=== PATIENT | male | born 1965 | race Caucasian/White ===

== ENCOUNTER 2017-04-08 09:59 | Inpatient (IN) | payer OTHER ==
[2017-04-08] MEDS ORDERED: ALBUTEROL SULFATE/IPRATROPIUM 3 ML NEBU IH ONE ×3 (10:01→12:14)
[2017-04-08] MEDS ORDERED: METHYLPREDNISOLONE SOD SUCC/PF 40 MG/ML VIAL IV ONE (10:05)
[2017-04-08] MEDS ORDERED: METHYLPREDNISOLONE SOD SUCC/PF 125 MG/2 ML VIAL ONE (10:05)
[2017-04-08] MEDS ORDERED: LORazepam 2 MG/ML DISP.SYRIN ONE ×2 (10:24→11:45)
[2017-04-08 10:25] LABS: Hematocrit 51.3 % (42.0-52.0); Hemoglobin 17.3 gm/dL (13.5-18.0); Mean Cell Volume 101.6 fl (78-100); Mean Corpuscular Hemoglobin 34.3 pg (27-31); Mean Corpuscular Hgb Conc 33.7 g/dl (32-36); Mean Platelet Volume 8.6 fl (6.0-9.5); Neutrophil # 5.9 K/mm3 (1.3-6.0); Neutrophil % 64.6 % (42-75.0); Platelet Count 334 K/mm3 (150-450); Red Blood Count 5.05 M/mm3 (4.7-6.0); Red Cell Distribution Width 12.5 % (11.5-14.0); White Blood Count 9.2 K/mm3 (4.0-10.5)
--- NOTE | 2017-04-08 10:27 | ERNOTE ---
Dyspnea - General Time Seen by Provider: 04/08/17 10:15 Source: patient Exam Limitations: no limitations - Immun/Allergies/Home Medications Immunizations: IMMUNIZATION HX Immunizations Up to Date Yes History of Influenza Vaccine More Information Required Hx Pneumococcal Vaccination More Information Required Allergies/Adverse Reactions: Allergies No Known Allergies Allergy (Verified 04/08/17 13:26) Home Medications: HOME MEDICATIONS Mometasone Furoate [Asmanex] 220 mcg IH DAILY 12/12/14 [Last Taken Unknown] Albuterol Sulfate [Ventolin Hfa] 2 puff IH Q2H PRN #1 inhaler 01/04/15 [Last Taken Unknown] Tiotropium Br/Olodaterol HCl [Stiolto Respimat Inhal [place]] 2 puff IH DAILY [Last Taken Unknown] predniSONE [Prednisone] 15 mg PO DAILY 04/08/17 [Last Taken Unknown] - History of Present Illness Narrative: This is a 52-year-old male with a history of asthma COPD and emphysema who has been having shortness of breath worse than usual for the past 2 days. The shortness of breath got significantly worse this morning. Ambulance was dispatched to the patient's residence the patient is brought in via EMS. Upon arrival patient is diaphoretic tachypneic and tachycardic and he has bibasal and bilateral upper inspiratory and expiratory wheezes upon auscultation of the lungs. An attempt at bronchodilation with Solu-Medro 125 mg IV, DuoNeb, BiPAP, lightly improved patient's condition however patient was starting to get tired and fatigued and grunting. - Patient's Past Medical History Patient History - Medical: No pertinent hx, Other Patient History - Cardiac/Respiratory: Asthma, COPD Patient History - Cancer: No Hx of Cancer Patient History - Surgical Procedures: No surgical history Patient History - Other: None - Family History Mother Family History - Medical: No pertinent hx Father Family History - Medical: No pertinent hx - Social History Living Situations: home Abuse History: No History of abuse Psych History: No pertinent hx Smoking Status: Former smoker Alcohol Use: heavy Drug Use: none - Immunizations Immunizations Up to Date: Yes Hx Pneumococcal Vaccination: More Information Required to Determine History of Influenza Vaccine: More Information Required to Determine ED Progress - Vital Signs Vital Signs: Vital Signs 04/08/17 10:02 Temperature 36.3 C L Pulse Rate 151 H Respiratory 28 H Rate O2 Sat by Pulse 95 Oximetry - Progress/Reassessment Chief Complaint: Dyspnea Departure Clinical Impression: Respiratory failure Qualifiers: Chronicity: unspecified Respiratory failure complication: hypoxia Qualified Code(s): J96.91 - Respiratory failure, unspecified with hypoxia - Departure Disposition: [facility] Condition: Serious - Critical Care Total Time (mins): 60
[2017-04-08] MEDS ORDERED: NORMAL SALINE 1,000 ML IV ONE (10:30)
[2017-04-08] MEDS ORDERED: LORazepam 2 MG/ML DISP.SYRIN IV ONE ×3 (10:30→11:45)
[2017-04-08 10:40] LABS: Albumin * 3.9 gm/dl (3.4-5.0); Anion Gap 14.4 mmol/L (6.8-13.8); BUN/Creatinine Ratio 14.9 (9.0-21.6); Bilirubin, Total 0.7 mg/dL (0.0-1.1); Ca. Corrected For Albumin 8.6 mg/dL (8.4-10.2); Calcium * 8.8 mg/dL (7.9-10.9); Carbon Dioxide 28.1 mmol/L (24-32.6); Potassium 4.5 mmol/L (3.4-4.6); Total Protein 7.8 gm/dL (6.2-8.2)
[2017-04-08] MEDS: PROPOFOL 1,000 MG/100 ML PIGGYBACK IV PRN ×10 (10:48→21:37)
--- NOTE | 2017-04-08 10:57 | OR ---
Anesthesia Procedure Note - Anesthesia Procedure Note Date of Service: 04/08/17 Narrative: Vital Signs - Last Taken Temp 36.3 C L 04/08/17 10:02 Pulse 151 H 04/08/17 10:02 Resp 28 H 04/08/17 10:02 BP 100/64 03/09/16 15:20 Pulse Ox 95 04/08/17 10:02 O2 Oxygen Delivery Method Room Air 04/08/17 10:47 Procedure: Endotracheal intubation Preprocedural diagnosis: Respiratory failure, respiratory acidosis Assessment: I was called to the emergency department for an endotracheal intubation on a patient with respiratory distress, retaining CO2. Mr. Dickey is a 52-year-old male patient who is currently sitting in the upright position on the stretcher in obvious respiratory distress he is on BiPAP which has been of some help however there is not a great seal due to his mustache.. Saturations are maintaining in the 90s however he has rapid respiratory rate and increasing heart rate indicates a progressive respiratory failure. The procedure and risks were explained and discussed with the patient and family there are 2 eyepiece present 20-gauge in the right forearm and a 20-gauge in the left hand. The 20-gauge in the right forearm had saline running in it and that was the IV initial induction was used. Brief description of procedure: Mr. Dickey was given 2 mg of Ativan IV after approximately 2 minutes was given 50 mg of ketamine followed by 14 mg of etomidate. At this point the emergency room physician request to stop conduction because the IV was apparently infiltrated. As such the team was instructed to quickly change the IV fluids to the other side where I gave an additional 50 mg of ketamine followed by the remaining 6 mg of etomidate considering the etomidate dose I followed with 60 mg of propofol, then 10 mg of vecuronium. Plan Mr. Dickey decreased his respiration he was placed in a supine position and was ventilated with 100% per Ambu bag. Next, using a #3 glide scope blade the larynx was visualized in the #8.0 endotracheal tube was passed stylette removed, the cuff inflated, and improved per 100% was attached. The patient was ventilated with bilateral breath sounds equal and CO2 positive by side stream analysis. The endotracheal tube was fixed at 23 cm to the gums with a commercial endotracheal Vogel. A postprocedural chest x-ray was ordered EBL: 0 Specimens: 0 Patient tolerated the procedure well and is now being ventilated
[2017-04-08 11:18] LABS: Urine Bilirubin Negative (NEGATIVE); Urine Blood 50 /ul (NEGATIVE); Urine Ketone Negative (NEGATIVE); Urine Nitrite Negative (NEGATIVE); Urine Protein 100 mg/dL (NEGATIVE); Urine Specific Gravity >=1.030 SP.GR. (1.005-1.030); Urine Urobilinogen Normal (NORMAL); Urine pH 5.5 pH (5.0-7.0)
[2017-04-08 11:20] LABS: Urine Appearance Slightly Cloudy; Urine Bacteria 1+; Urine Color Yellow; Urine WBC None Seen /hpf (0-5)
[2017-04-08] MEDS ORDERED: METHYLPREDNISOLONE SOD SUCC/PF 40 MG/ML VIAL IV SCH (11:30)
[2017-04-08] MEDS ORDERED: ROCURONIUM BROMIDE 10 MG/ML VIAL IV ONE (12:06)
[2017-04-08] MEDS: ALBUTEROL SULFATE/IPRATROPIUM 3 ML NEBU IH SCH ×4 (12:19→23:01)
[2017-04-08] MEDS ORDERED: MIDAZOLAM HCL/PF 1 MG/ML VIAL IV PRN (13:09)
[2017-04-08] MEDS: NORMAL SALINE IV SCH ×2 (13:43→21:58)
[2017-04-08] MEDS: MIDAZOLAM HCL IV SCH ×2 (13:43→21:58)
[2017-04-08] MEDS: INSULIN LISPRO 100 UNITS/ML VIAL SC SCH ×4 (13:53→23:30)
[2017-04-08] MEDS: METHYLPREDNISOLONE SOD SUCC 125 MG in WATER FOR INJ.,BACTERIOSTATIC 0 ML IV SCH ×3 (14:21→23:18)
[2017-04-08] MEDS: LEVOFLOXACIN/D5W 750 MG/150 ML BAG IV SCH (14:21)
[2017-04-08] MEDS: FAMOTIDINE 20 MG in DEXTROSE 5 % IN WATER 100 ML IV SCH ×4 (14:27→23:17)
[2017-04-08] MEDS ORDERED: MULTIVIT INFUSN,ADULT 4,VIT K 10 ML, THIAMINE HCL 100 MG in NORMAL SALINE 1,000 ML IV ONE (14:59)
[2017-04-08] MEDS ORDERED: LORazepam 2 MG/ML DISP.SYRIN IV PRN ×3 (14:59)
[2017-04-08] MEDS ORDERED: THIAMINE HCL 100 MG/ML VIAL IM STA (14:59)
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
--- NOTE | 2017-04-08 15:38 | OR ---
Anesthesia Procedure Note - Anesthesia Procedure Note Date of Service: 04/08/17 Narrative: Vital Signs - Last Taken Temp 36.8 C 04/08/17 13:14 Pulse 121 H 04/08/17 14:41 Resp 32 H 04/08/17 14:41 BP 118/82 04/08/17 14:41 Pulse Ox 98 04/08/17 14:41 O2 Oxygen Delivery Method Vent 04/08/17 15:35 ANESTHESIA PROCEDURE NOTE Date of Procedure: 04/08/2017. Time of procedure: 1440. Performed by: Austyn Johnson CRNA Color Expert: None. Preprocedure diagnosis: Respiratory arrest. Post procedure diagnosis: Same. Procedure: Ultrasound guided PICC line insertion. Indications: This is a 52-year-old male who is in need of a PICC line for multiple IV infusions. Findings: See below. Details of the procedure: Under ultrasound guidance the right basilic vein was visualized. Skin over the intended target site was cleansed with ChloraPrep. The patient was draped in sterile fashion. The skin over the intended target site was anesthetized with 1% lidocaine. Under direct ultrasound visualization the vein was cannulated with a 22-gauge IV catheter. Dark red blood was noted from the catheter. A 0.45 mm guidewire was inserted through the IV catheter and IV catheter was removed intact. A skin joan was made at the guidewire insertion site with a scalpel. The 5 [place] vessel dilator was inserted over the guidewire and the guidewire was removed intact. Dark red blood was noted from the vessel dilator. The PICC line was inserted to a depth of 41 cm and the vessel dilator was peeled away. Dark red blood was noted from both ports of the PICC line. PICC line was flushed with sterile normal saline solution. A sterile dressing was then applied over the PICC line insertion site. Chest x- ray revealed the PICC line to have crossed over the mediastinum into a left arm vessel. The PICC line was withdrawn approximately 8 cm under sterile technique and reinserted. New sterile dressing was then applied over the PICC line insertion site. EBL: Minimal. Fluids: N/A. Specimen: N/A. Post procedure condition: The patient tolerated the procedure well. No complications were noted. Chest x-ray revealed the placement of the PICC line to be in the superior vena cava. Thank you for this consultation. Austyn Johnson, PATIENT CARE COORDINATOR
[2017-04-08] MEDS: ENOXAPARIN SODIUM 40 MG/0.4 ML SYRG SC SCH (15:52)
[2017-04-09] MEDS: PROPOFOL 1,000 MG/100 ML PIGGYBACK IV PRN ×6 (00:19→13:37)
[2017-04-09] MEDS: ALBUTEROL SULFATE/IPRATROPIUM 3 ML NEBU IH SCH ×3 (03:04→13:19)
[2017-04-09] MEDS: INSULIN LISPRO 100 UNITS/ML VIAL SC SCH ×3 (03:18→11:33)
[2017-04-09] MEDS: METHYLPREDNISOLONE SOD SUCC 125 MG in WATER FOR INJ.,BACTERIOSTATIC 0 ML IV SCH ×2 (05:28→11:16)
[2017-04-09 05:59] LABS: Hematocrit 44.3 % (42.0-52.0); Hemoglobin 14.8 gm/dL (13.5-18.0); Mean Cell Volume 101.6 fl (78-100); Mean Corpuscular Hemoglobin 33.9 pg (27-31); Mean Corpuscular Hgb Conc 33.4 g/dl (32-36); Mean Platelet Volume 8.8 fl (6.0-9.5); Neutrophil # 10.4 K/mm3 (1.3-6.0); Neutrophil % 91.2 % (42-75.0); Platelet Count 251 K/mm3 (150-450); Red Blood Count 4.36 M/mm3 (4.7-6.0); Red Cell Distribution Width 12.2 % (11.5-14.0); White Blood Count 11.5 K/mm3 (4.0-10.5)
[2017-04-09 06:31] LABS: Albumin * 3.3 gm/dl (3.4-5.0); Anion Gap 13.4 mmol/L (6.8-13.8); Bilirubin Direct 0.1 mg/dL (0.0-0.3); Bilirubin, Total 0.5 mg/dL (0.0-1.1); Bilirubin,Indirect 0.4 mg/dL (0.1-0.7); Calcium * 8.2 mg/dL (7.9-10.9); Estimated Creat Clear 96.1; Potassium 4.4 mmol/L (3.4-4.6); Total Protein 6.6 gm/dL (6.2-8.2)
[2017-04-09 06:34] LABS: Hemoglobin A1C 5.4 % (4.00-6.0)
[2017-04-09] MEDS: MIDAZOLAM HCL IV SCH ×2 (07:04→13:37)
[2017-04-09] MEDS: NORMAL SALINE IV SCH ×2 (07:04→13:37)
[2017-04-09] MEDS ORDERED: CHLORHEXIDINE GLUCONATE 15 ML UDC MM SCH (09:00)
[2017-04-09] MEDS ORDERED: FOLIC ACID 1 MG TABLET PO SCH (09:00)
[2017-04-09] MEDS ORDERED: THIAMINE HCL 100 MG TABLET PO SCH (09:00)
[2017-04-09] MEDS ORDERED: MULTIVITAMINS 1 CAP CAPSULE PO SCH (09:00)
[2017-04-09] MEDS: ENOXAPARIN SODIUM 40 MG/0.4 ML SYRG SC SCH (10:47)
[2017-04-09] MEDS: FAMOTIDINE 20 MG in DEXTROSE 5 % IN WATER 100 ML IV SCH ×2 (10:50)
[2017-04-09] MEDS: LEVOFLOXACIN/D5W 750 MG/150 ML BAG IV SCH (11:19)
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
[2017-04-09 13:35] VITALS: BP 111/75
== END 2017-04-09 13:54 | disposition short-term general hospital (02) | DRG 208 ==
LOC: ER 09:59 → SCU 10:47
PROVIDERS: ADMIT Internal Medicine; ATTEND Internal Medicine
PROC: 0BH17EZ Insertion of Endotracheal Airway into Trachea, Via Natural or Artificial Opening (ICD-10-PCS; principal; 2017-04-08)
PROC: 5A1945Z Respiratory Ventilation, 24-96 Consecutive Hours (ICD-10-PCS; principal; 2017-04-08)
PROC: 4A033R1 Measurement of Arterial Saturation, Peripheral, Percutaneous Approach (ICD-10-PCS; 2017-04-08)
DX: J96.02 Acute respiratory failure with hypercapnia (principal); J44.1 Chronic obstructive pulmonary disease with (acute) exacerbation; J45.909 Unspecified asthma, uncomplicated; R73.9 Hyperglycemia, unspecified; F10.10 Alcohol abuse, uncomplicated; D75.89 Other specified diseases of blood and blood-forming organs; F17.210 Nicotine dependence, cigarettes, uncomplicated

== ENCOUNTER 2019-06-29 14:08 | Inpatient (IN) ==
[2019-06-29] MEDS ORDERED: ALBUTEROL SULFATE 2.5 MG/0.5 ML VIAL.NEB IH ONE ×2 (14:38→16:14)
[2019-06-29] MEDS ORDERED: METHYLPREDNISOLONE SOD SUCC/PF 125 MG/2 ML VIAL IV ONE (14:38)
[2019-06-29 15:10] LABS: Hematocrit 43.8 % (42.0-52.0); Hemoglobin 15.1 gm/dL (13.5-18.0); Mean Corpuscular Hemoglobin 33.8 pg (27-31); Mean Corpuscular Hgb Conc 34.5 g/dl (32-36); Mean Platelet Volume 8.6 fl (8-11.3); Neutrophil % 86.3 % (42-75.0); Platelet Count 238 K/mm3 (150-450); Red Blood Count 4.47 M/mm3 (4.7-6.0); Red Cell Distribution Width 12.2 % (11.5-14.0); White Blood Count 8.1 K/mm3 (4.0-10.5)
[2019-06-29 15:21] LABS: ALT 91 U/L (19-67); AST 45 U/L (0-48); Albumin * 3.7 gm/dl (3.4-5.0); Alkaline Phosphatase * 66 U/L (50-170); Anion Gap 9.1 mmol/L (6.8-13.8); BUN/Creatinine Ratio 13.9 (9.0-21.6); Bilirubin, Total 0.6 mg/dL (0.0-1.1); Blood Urea Nitrogen 15 mg/dL (6-23); Ca. Corrected For Albumin 8.4 mg/dL (8.4-10.2); Calcium * 8.5 mg/dL (7.9-10.9); Chloride 100 mmol/L (97-106); Glucose * 143 mg/dL (70-110); Magnesium 1.9 mg/dL (1.2-2.8); Potassium 4.1 mmol/L (3.4-4.6); Sodium 132 mmol/L (132-142); Total Protein 7.2 gm/dL (6.2-8.2); Troponin I Less than 0.017 ng/mL (0.00-0.10)
[2019-06-29] MEDS ORDERED: LEVOFLOXACIN IN DEXTROSE 5 % 500 MG/100 ML BAG IV SCH (16:00)
--- NOTE | 2019-06-29 16:25 | ERNOTE ---
Dyspnea - Date Date of Service: 06/29/19 - General Presenting Symptoms: shortness of breath, wheezing Time Seen by Provider: 06/29/19 14:25 Source: patient Exam Limitations: no limitations - Immun/Allergies/Home Medications Immunizations: IMMUNIZATION HX Immunizations Up to Date Yes History of Influenza Vaccine Yes Hx Pneumococcal Vaccination No Allergies/Adverse Reactions: Allergies No Known Allergies Allergy (Verified 06/29/19 14:17) Home Medications: HOME MEDICATIONS Mometasone Furoate [Asmanex] 220 mcg IH DAILY 12/12/14 [Last Taken Unknown] Albuterol Sulfate [Ventolin Hfa] 2 puff IH Q2H PRN #1 inhaler 01/04/15 [Last Taken Unknown] Tiotropium Br/Olodaterol HCl [Stiolto Respimat Inhal [place]] 2 puff IH DAILY 04/08/17 [Last Taken Unknown] predniSONE [Prednisone] 18 mg PO DAILY 04/08/17 [Last Taken Unknown] Aspirin [Aspirin EC] 81 mg PO DAILY 09/19/18 [Last Taken Unknown] Atorvastatin Calcium 40 mg PO DAILY 09/19/18 [Last Taken Unknown] Hydroxyzine HCl 50 mg PO HS 09/19/18 [Last Taken Unknown] Lisinopril [Zestril] 5 mg PO DAILY 09/19/18 [Last Taken Unknown] Montelukast Sodium [Singulair] 10 mg PO DAILY 09/19/18 [Last Taken Unknown] Omeprazole 20 mg PO DAILY 09/19/18 [Last Taken Unknown] Albuterol Sulfate [Albuterol Sulfate 2.5 MG/0.5ML] 1 vial INHALATION Q4H PRN 06/29/19 [Last Taken Unknown] - History of Present Illness Narrative: Patient presents to the ED for SOB. This has been going on since yesterday. he was told he should come in early because of his bad lungs and he still thinks he waited too long this time. SOB/wheezing and sputum production. No fever. He took innumerable breathing treatments at home. EMS called and gave him solumedrol and 2 breathing treatments. Still feels SOB. 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 Denies: fever/chills, chest pain/discomfort, weakness Prior Treatment: Denies: currently on antibiotics Review of Systems - Review of Systems Constitutional: Absent: fever ENT: Absent: sore throat Respiratory: Present: shortness of breath, cough Cardiology: Absent: chest pain Gastrointestinal/Abdominal: Absent: abdominal pain Genitourinary: Absent: dysuria All Other Systems: All systems neg except as marked Medical History (Last Reviewed 06/29/19 @ 16:22 by Alonzo Marina MD) Asthma COPD (chronic obstructive pulmonary disease) Surgical History: Surgical History (Last Reviewed 06/29/19 @ 16:22 by Alonzo Marina MD) No pertinent past surgical history Social History: (Last Reviewed 06/29/19 @ 16:22 by Alonzo Marina MD) Tobacco: Smoking Status: Current every day smoker Smoking cigarettes per day: 3 Alcohol: alcohol intake: current alcohol intake frequency: 0-2 drinks per day Substance Use: substance use type: does not use Physical Exam - Physical Exam General Appearance: Present: alert, no apparent distress Head Exam: Present: normal inspection, no evidence of injury Eye Exam: Normal inspection: bilateral, PERRL: bilateral Ears, Nose, Throat: Present: normal ENT inspection Neck: Present: normal inspection Respiratory: Present: wheezing, other - diffuse wheezing, no active distress. occasional cough Cardiovascular/Chest: Present: normal peripheral pulses, tachycardia Gastrointestinal/Abdominal: Present: normal bowel sounds, nontender, soft Back Exam: Absent: CVA tenderness (R), CVA tenderness (L) Extremity Exam: Present: normal inspection, no edema Neurological Exam: Present: alert, no motor/sensory deficits Skin Exam: Present: normal color, warm/dry Progress - Results and Orders Patient's Lab Results:: I have reviewed the patient's lab results. - Vital Signs Patient's Vital Signs:: I have reviewed the patient's vital signs. Vital Signs: Vital Signs 06/29/19 14:12 06/29/19 14:40 06/29/19 14:45 Temperature 36.0 C Pulse Rate 113 H 109 H 116 H Respiratory Rate 21 H 15 18 Blood Pressure 160/97 H 150/99 H O2 Sat by Pulse Oximetry 95 92 L 91 L 06/29/19 14:47 Temperature Pulse Rate 109 H Respiratory Rate Blood Pressure O2 Sat by Pulse Oximetry - EKG EKG #1 EKG read: Interp. by me EKG Comments: Sinus tachycardia, rate 109. Non-specific, no STEMI noted - X-Ray X-Ray #1 X-Ray: chest Interpretation: Interp. by me X-ray Comments: I reviewed official radiology report, no acute process - Progress/Reassessment Chief Complaint: Dyspnea Progress Note-Subjective: 06/29/19 16:23 Patient given additional neb X 2 and still wheezing. Needs [facility] the hospital[facility]. Patient agreeable. D/W Dr Casas who saw the patient in the ED for admission. Departure Clinical Impression: COPD exacerbation - Departure Disposition: Still a patient Condition: Fair
--- NOTE | 2019-06-29 16:52 | HP ---
Chief Complaint - Chief Complaint Date of Service: 06/29/19 Time of Service: 16:22 Chief Complaint: Shortness of breath and increased sputum production x2 days History of Present Illness: 54-year-old male with a past medical history of COPD on daily prednisone (he currently smokes 5 to 6 cigarettes a day), GERD, hypertension, hyperlipidemia, asthma presents with complaints of shortness of breath and increased sputum production for the past. Symptoms progressively worsened. Today he gave himself 10 breathing treatments at home with no relief. Event decided to call 911. He was brought to the emergency department by EMS and received a dose of Solu-Medrol and 2 more breathing treatments. He continues to have shortness of breath. In the ED he received 2 more nebulizer treatments. Vitals show tachycardia with heart rate in the low 100s, slightly elevated blood pressure 144/89, tachypnea 24. His oxygen saturation is 93 on 2 L of oxygen via nasal cannula. Chest x-ray is negative for any acute cardiopulmonary abnormality. He will be admitted as observation for a COPD exacerbation. He is received 1 dose of Levaquin 500 mg IV in the emergency department. Of note the patient is a but the [facility] who was full so they have approved admission here. Medical History (Last Reviewed 06/29/19 @ 16:22 by Alonzo Marina MD) Asthma COPD (chronic obstructive pulmonary disease) Surgical History: Surgical History (Last Reviewed 06/29/19 @ 16:22 by Alonzo Marina MD) No pertinent past surgical history Family History: Family History (Last Updated 06/29/19 @ 17:07 by Milly Elliott MD) Other Family history non-contributory Social History: (Last Reviewed 06/29/19 @ 16:22 by Alonzo Marina MD) Tobacco: Smoking Status: Current every day smoker Smoking cigarettes per day: 3 Alcohol: alcohol intake: current alcohol intake frequency: 0-2 drinks per day Substance Use: substance use type: does not use Review Of Systems (GEN) - Review of Systems Generalized/Overall Review: Absent: Chills, Fever Respiratory: Absent: Shortness of Breath Cardiac: Absent: Chest Pain, Edema Abdominal: Absent: Abdominal Pain Misc: All systems neg except as marked Immunizations: IMMUNIZATION HX Immunizations Up to Date Yes History of Influenza Vaccine Yes Hx Pneumococcal Vaccination No Allergies/Adverse Reactions: Allergies Allergy/AdvReac Type Severity Reaction Status Date / Time No Known Allergies Allergy Verified 06/29/19 14:17 Home Medications: HOME MEDICATIONS Mometasone Furoate [Asmanex] 220 mcg IH DAILY 12/12/14 [Last Taken Unknown] Albuterol Sulfate [Ventolin Hfa] 2 puff IH Q2H PRN #1 inhaler 01/04/15 [Last Taken Unknown] Tiotropium Br/Olodaterol HCl [Stiolto Respimat Inhal [place]] 2 puff IH DAILY 04/08/17 [Last Taken Unknown] predniSONE [Prednisone] 18 mg PO DAILY 04/08/17 [Last Taken Unknown] Aspirin [Aspirin EC] 81 mg PO DAILY 09/19/18 [Last Taken Unknown] Atorvastatin Calcium 40 mg PO DAILY 09/19/18 [Last Taken Unknown] Hydroxyzine HCl 50 mg PO HS 09/19/18 [Last Taken Unknown] Lisinopril [Zestril] 5 mg PO DAILY 09/19/18 [Last Taken Unknown] Montelukast Sodium [Singulair] 10 mg PO DAILY 09/19/18 [Last Taken Unknown] Omeprazole 20 mg PO DAILY 09/19/18 [Last Taken Unknown] Albuterol Sulfate [Albuterol Sulfate 2.5 MG/0.5ML] 1 vial INHALATION Q4H PRN 06/29/19 [Last Taken Unknown] Exam - Exam Vital Signs: Vital Signs - Last Taken Temp 36.0 C 06/29/19 14:12 Pulse 108 H 06/29/19 16:27 Resp 20 06/29/19 16:27 BP 144/89 H 06/29/19 16:18 Pulse Ox 93 06/29/19 16:18 Constitutional: Present: Alert, Cooperative, Well developed, Well nourished, Mild distress, Middle aged Eye Exam: bilateral eye: normal inspection, PERRL, EOMI Neck: Present: non-tender, supple, trachea midline. Absent: lymphadenopathy (R), lymphadenopathy (L) Back Exam: Present: normal inspection, no CVA tenderness, no vertebral tenderness. Absent: CVA tenderness (R), CVA tenderness (L) Respiratory: Present: no accessory muscle use, decreased breath sounds - Throughout all lung nichole, wheezing - Expiratory wheezes throughout all lung nichole. Absent: crackles, rhonchi Cardiovascular/Chest: Present: normal peripheral pulses, no edema, no murmur, tachycardia Peripheral Pulses: dorsalis-pedis (R): 2+, dorsalis-pedis (L): 2+ Abdomen: Present: Normal bowel sounds, soft, nontender, obese Extremity: Present: non-tender, no pedal edema Skin Exam: Present: normal color, warm/dry Neurologic: Present: alert, normal mood/affect Appearance: Present: appropriate appearance, appropriate insight Eye contact: Present: cooperative, good eye contact Thoughts: Present: normal mood /affect Diagnostic Studies: Abnormal Lab Results 06/29/19 06/29/19 06/29/19 Range/Units 14:50 14:50 15:05 RBC 4.47 L (4.7-6.0) M/mm3 MCH 33.8 H (27-31) pg Immature Gran % (Auto) 1.00 H (0.001-0.429) % Immature Gran # (Auto) 0.08 H (0.000-0.0310) K/mm3 Neutrophils % 86.3 H (42-75.0) % Lymphocytes % 8.2 L (20-51) % Neutrophils # 7.0 H (1.3-6.0) K/mm3 Lymphocytes # 0.66 L (1.5-3.5) k/mm3 pO2 62.5 L (83.0-108.0) mmHg Total CO2 27.0 H (19.0-24.0) mmol/L ABG O2 Sat (Measured) 92.2 L (94.0-98.0) % Random Glucose 143 H (70-110) mg/dL ALT 91 H (19-67) U/L Laboratory Results WBC 8.1 K/mm3 (4.0-10.5) 06/29/19 14:50 RBC 4.47 M/mm3 (4.7-6.0) L 06/29/19 14:50 Hgb 15.1 gm/dL (13.5-18.0) 06/29/19 14:50 Hct 43.8 % (42.0-52.0) 06/29/19 14:50 MCV 98.0 fl (78-100) 06/29/19 14:50 MCH 33.8 pg (27-31) H 06/29/19 14:50 MCHC 34.5 g/dl (32-36) 06/29/19 14:50 RDW 12.2 % (11.5-14.0) 06/29/19 14:50 Plt Count 238 K/mm3 (150-450) 06/29/19 14:50 MPV 8.6 fl (8-11.3) 06/29/19 14:50 Immature Gran % (Auto) 1.00 % (0.001-0.429) H 06/29/19 14:50 Immature Gran # (Auto) 0.08 K/mm3 (0.000-0.0310) H 06/29/19 14:50 Neutrophils % 86.3 % (42-75.0) H 06/29/19 14:50 Lymphocytes % 8.2 % (20-51) L 06/29/19 14:50 Monocytes % 3.7 % (0.0-9) 06/29/19 14:50 Eosinophils % 0.2 % (0.0-3.0) 06/29/19 14:50 Basophils % 0.6 % (0.0-1.0) 06/29/19 14:50 Nucleated RBC % 0.0 k/mm3 (0-1) 06/29/19 14:50 Neutrophils # 7.0 K/mm3 (1.3-6.0) H 06/29/19 14:50 Lymphocytes # 0.66 k/mm3 (1.5-3.5) L 06/29/19 14:50 Monocytes # 0.3 k/mm3 (0.0-1.0) 06/29/19 14:50 Eosinophils # 0.0 k/mm3 (0.0-0.7) 06/29/19 14:50 Absolute Basophils 0.1 k/mm3 (0.0-0.1) 06/29/19 14:50 pCO2 41.4 mmHg (35.0-48.0) 06/29/19 15:05 pO2 62.5 mmHg (83.0-108.0) L 06/29/19 15:05 HCO3 25.8 mmol/L (21.0-28.0) 06/29/19 15:05 Total CO2 27.0 mmol/L (19.0-24.0) H 06/29/19 15:05 Base Excess 1.0 mmol/L (-2.0-3.0) 06/29/19 15:05 ABG pH 7.41 (7.35-7.45) 06/29/19 15:05 ABG O2 Sat (Measured) 92.2 % (94.0-98.0) L 06/29/19 15:05 Sodium 132 mmol/L (132-142) 06/29/19 14:50 Plasma Sodium 133 mmol/L (130-142) 06/29/19 14:50 Potassium 4.1 mmol/L (3.4-4.6) 06/29/19 14:50 Chloride 100 mmol/L (97-106) 06/29/19 14:50 Carbon Dioxide 27.0 mmol/L (24-32.6) 06/29/19 14:50 Anion Gap 9.1 mmol/L (6.8-13.8) 06/29/19 14:50 BUN 15 mg/dL (6-23) 06/29/19 14:50 Creatinine 1.08 mg/dL (0.4-1.4) 06/29/19 14:50 Est GFR (Non-Af Amer) 76 mL/min (60-130) 06/29/19 14:50 BUN/Creatinine Ratio 13.9 (9.0-21.6) 06/29/19 14:50 Random Glucose 143 mg/dL (70-110) H 06/29/19 14:50 Calcium 8.5 mg/dL (7.9-10.9) 06/29/19 14:50 Calcium Adj for Albumin 8.4 mg/dL (8.4-10.2) 06/29/19 14:50 Magnesium 1.9 mg/dL (1.2-2.8) 06/29/19 14:50 Total Bilirubin 0.6 mg/dL (0.0-1.1) 06/29/19 14:50 AST 45 U/L (0-48) 06/29/19 14:50 ALT 91 U/L (19-67) H 06/29/19 14:50 Alkaline Phosphatase 66 U/L (50-170) 06/29/19 14:50 Troponin I Less than 0.017 ng/mL (0.00-0.10) 06/29/19 14:50 Total Protein 7.2 gm/dL (6.2-8.2) 06/29/19 14:50 Albumin 3.7 gm/dl (3.4-5.0) 06/29/19 14:50 Assessment/Plan - Narrative Narrative: 54-year-old male with a past medical history of COPD on daily prednisone (he currently smokes 5 to 6 cigarettes a day), GERD, hypertension, hyperlipidemia, asthma presents with complaints of shortness of breath and increased sputum production for the past. Symptoms progressively worsened. Today he gave himself 10 breathing treatments at home with no relief. Event decided to call 911. He was brought to the emergency department by EMS and received a dose of Solu-Medrol and 2 more breathing treatments. He continues to have shortness of breath. In the ED he received 2 more nebulizer treatments. Vitals show tachycardia with heart rate in the low 100s, slightly elevated blood pressure 144/89, tachypnea 24. His oxygen saturation is 93 on 2 L of oxygen via nasal cannula. Chest x-ray is negative for any acute cardiopulmonary abnormality. He will be admitted as observation for a COPD exacerbation. He is received 1 dose of Levaquin 500 mg IV in the emergency department. Of note the patient is a but the [facility] who was full so they have approved admission here. Plan #1 admit inpatient observation for COPD exacerbation #2 continue Levaquin 500 mg daily #3 continue with duo nebs every 4 hours as needed #4 wean off of oxygen as tolerated, goal O2 saturation is 88 to 92% #5 continue with prednisone 40 mg once a day for 4 more days, total 5 days #6 ambulate as tolerated #7 resume home medications for comorbidities - Assessment/Plan (1) COPD exacerbation Problem: Acute (2) Hypertension Problem: Chronic Qualifiers: Hypertension type: essential hypertension Qualified Code(s): I10 - Essential (primary) hypertension (3) Smoking 1/2 pack a day or less Problem: Chronic (4) Hyperlipidemia Problem: Chronic
[2019-06-29] MEDS ORDERED: LEVOFLOXACIN IN DEXTROSE 5 % 500 MG/100 ML BAG IV ONE (17:00)
[2019-06-29] MEDS: ALBUTEROL SULFATE/IPRATROPIUM 3 ML NEBU IH PRN ×2 (17:58→22:27)
[2019-06-29] MEDS: hydrOXYzine HCL 25 MG TABLET PO SCH (20:40)
[2019-06-29] MEDS: ROSUVASTATIN CALCIUM 20 MG TABLET PO SCH (20:41)
[2019-06-30] MEDS ORDERED: ACETAMINOPHEN 325 MG TABLET PO PRN (01:04)
[2019-06-30 07:14] LABS: Hematocrit 42.4 % (42.0-52.0); Hemoglobin 14.5 gm/dL (13.5-18.0); Mean Cell Volume 96.8 fl (78-100); Mean Corpuscular Hemoglobin 33.1 pg (27-31); Mean Corpuscular Hgb Conc 34.2 g/dl (32-36); Mean Platelet Volume 8.9 fl (8-11.3); Neutrophil # 8.3 K/mm3 (1.3-6.0); Neutrophil % 81.5 % (42-75.0); Platelet Count 258 K/mm3 (150-450); Red Blood Count 4.38 M/mm3 (4.7-6.0); Red Cell Distribution Width 11.9 % (11.5-14.0); White Blood Count 10.1 K/mm3 (4.0-10.5)
[2019-06-30 07:17] LABS: Albumin * 3.7 gm/dl (3.4-5.0); Anion Gap 13.1 mmol/L (6.8-13.8); BUN/Creatinine Ratio 14.6 (9.0-21.6); Bilirubin, Total 0.5 mg/dL (0.0-1.1); Ca. Corrected For Albumin 8.7 mg/dL (8.4-10.2); Calcium * 8.8 mg/dL (7.9-10.9); Carbon Dioxide 26.9 mmol/L (24-32.6)
[2019-06-30] MEDS: predniSONE 20 MG TABLET PO SCH (08:01)
[2019-06-30] MEDS: LISINOPRIL 5 MG TABLET PO SCH (08:01)
[2019-06-30] MEDS: PANTOPRAZOLE SODIUM 20 MG TABLET.DR PO SCH (08:01)
[2019-06-30] MEDS: ASPIRIN 81 MG TABLET.DR PO SCH (08:01)
[2019-06-30] MEDS: ALBUTEROL SULFATE/IPRATROPIUM 3 ML NEBU IH PRN ×3 (08:14→18:20)
--- NOTE | 2019-06-30 09:35 | PN ---
Subjective - Date and Time Seen Date: 06/30/19 Time: 08:40 Subjective Narrative: He states he was feeling better until around 8:00 this morning. He went to the bathroom and on his way back he started feeling short of breath and was wheezing. Objective - Review of Systems Generalized/Overall Review: Denies: Fever Respiratory: Reports: Shortness of Breath, Wheezing Cardiac: Denies: Chest Pain Abdominal: Denies: Abdominal Pain Misc: All systems neg except as marked - Vitals Vitals: Last Vital Signs Temp 36.4 C 06/30/19 06:13 Pulse 100 06/30/19 08:14 Resp 17 06/30/19 08:14 BP 134/98 H 06/30/19 08:01 Pulse Ox 100 06/30/19 08:14 - Abnormal Lab Findings Abnormal Lab Findings: Abnormal Lab Results 06/29/19 06/29/19 06/29/19 Range/Units 14:50 14:50 15:05 RBC 4.47 L (4.7-6.0) M/mm3 MCH 33.8 H (27-31) pg Immature Gran % (Auto) 1.00 H (0.001-0.429) % Immature Gran # (Auto) 0.08 H (0.000-0.0310) K/mm3 Neutrophils % 86.3 H (42-75.0) % Lymphocytes % 8.2 L (20-51) % Neutrophils # 7.0 H (1.3-6.0) K/mm3 Lymphocytes # 0.66 L (1.5-3.5) k/mm3 pO2 62.5 L (83.0-108.0) mmHg Total CO2 27.0 H (19.0-24.0) mmol/L ABG O2 Sat (Measured) 92.2 L (94.0-98.0) % Random Glucose 143 H (70-110) mg/dL ALT 91 H (19-67) U/L 06/30/19 06/30/19 Range/Units 06:58 06:58 RBC 4.38 L (4.7-6.0) M/mm3 MCH 33.1 H (27-31) pg Immature Gran % (Auto) 1.40 H (0.001-0.429) % Immature Gran # (Auto) 0.14 H (0.000-0.0310) K/mm3 Neutrophils % 81.5 H (42-75.0) % Lymphocytes % 9.2 L (20-51) % Neutrophils # 8.3 H (1.3-6.0) K/mm3 Lymphocytes # 0.93 L (1.5-3.5) k/mm3 pO2 (83.0-108.0) mmHg Total CO2 (19.0-24.0) mmol/L ABG O2 Sat (Measured) (94.0-98.0) % Random Glucose 130 H (70-110) mg/dL ALT 80 H (19-67) U/L - Exam Constitutional: Present: Alert, Cooperative, Well developed, Well nourished, No distress ENT Exam: Present: hearing grossly normal Neck: Present: non-tender, supple. Absent: lymphadenopathy (R), lymphadenopathy (L) Respiratory: Present: no respiratory distress, decreased breath sounds - Throughout all lung nichole but improved from yesterday, wheezing - Expiratory throughout all lung nichole. Absent: crackles, rhonchi Cardiovascular/Chest: Present: normal peripheral pulses, regular rate, rhythm, no edema, no murmur Abdomen: Present: Normal bowel sounds, soft, nontender Extremity: Present: no pedal edema Skin Exam: Present: normal color, warm/dry Neurologic: Present: alert, normal mood/affect Appearance: Present: appropriate appearance, appropriate insight Eye contact: Present: cooperative Thoughts: Present: normal thought pattern Assessment/Plan Plan Narrative: 54-year-old male with a past medical history of COPD on daily prednisone (he currently smokes 5 to 6 cigarettes a day), GERD, hypertension, hyperlipidemia, asthma presents with complaints of shortness of breath and increased sputum production for the past 2 to 3 days. Chest x-ray is negative for any acute cardiopulmonary abnormality. He will be admitted as observation for a COPD exacerbation. He is received 1 dose of Levaquin 500 mg IV in the emergency department. Of note the patient is a but the [facility] who was full so they have approved admission here. The patient states that he is having shortness of breath with ambulation. On auscultation he continues to have diminished breath sounds and expiratory wheezes throughout all lung nichole. Airflow is improved but still not good. When walking with the nurse his oxygen saturation dropped to 86% on room air. I will change him to inpatient status. He will need to remain hospitalized for further management until he is able to taper off of the oxygen. He does not use oxygen at home. Plan #1 admit inpatient observation for COPD exacerbation #2 continue Levaquin 500 mg daily, day 2 of 5 #3 continue with duo nebs every 4 hours as needed #4 wean off of oxygen as tolerated, goal O2 saturation is greater than 90% #5 continue with prednisone 40 mg daily, day 2 of 5 #6 ambulate as tolerated #7 resume home medications for comorbidities #8 DVT prophylaxis with Lovenox 40 mg daily - Problems/Diagnosis (1) COPD exacerbation Problem: Acute (2) Hypertension Problem: Chronic Qualifiers: Hypertension type: essential hypertension Qualified Code(s): I10 - Essential (primary) hypertension (3) Smoking 1/2 pack a day or less Problem: Chronic (4) Hyperlipidemia Problem: Chronic Qualifiers: Hyperlipidemia type: unspecified Qualified Code(s): E78.5 - Hyperlipidemia, unspecified
[2019-06-30] MEDS: MONTELUKAST SODIUM 10 MG TABLET PO SCH (10:08)
[2019-06-30] MEDS: LEVOFLOXACIN 500 MG TABLET PO SCH (10:10)
[2019-06-30] MEDS: ENOXAPARIN SODIUM 40 MG/0.4 ML SYRG SC SCH (12:05)
[2019-06-30] MEDS: BUDESONIDE 0.5 MG/2 ML VIAL.NEB IH SCH ×2 (13:51→18:17)
[2019-06-30] MEDS: hydrOXYzine HCL 25 MG TABLET PO SCH (20:49)
[2019-06-30] MEDS: ROSUVASTATIN CALCIUM 20 MG TABLET PO SCH (20:49)
[2019-07-01] MEDS: ALBUTEROL SULFATE/IPRATROPIUM 3 ML NEBU IH PRN ×4 (01:20→15:13)
[2019-07-01 05:49] LABS: Hematocrit 40.7 % (42.0-52.0); Mean Cell Volume 98.1 fl (78-100); Mean Corpuscular Hemoglobin 33.7 pg (27-31); Mean Corpuscular Hgb Conc 34.4 g/dl (32-36); Mean Platelet Volume 8.6 fl (8-11.3); Neutrophil # 6.6 K/mm3 (1.3-6.0); Neutrophil % 67.7 % (42-75.0); Platelet Count 236 K/mm3 (150-450); Red Blood Count 4.15 M/mm3 (4.7-6.0); Red Cell Distribution Width 12.1 % (11.5-14.0); White Blood Count 9.7 K/mm3 (4.0-10.5)
[2019-07-01 06:03] LABS: Albumin * 3.5 gm/dl (3.4-5.0); Anion Gap 12.2 mmol/L (6.8-13.8); BUN/Creatinine Ratio 16.1 (9.0-21.6); Bilirubin, Total 0.4 mg/dL (0.0-1.1); Ca. Corrected For Albumin 8.4 mg/dL (8.4-10.2); Calcium * 8.3 mg/dL (7.9-10.9); Carbon Dioxide 29.7 mmol/L (24-32.6); Potassium 3.9 mmol/L (3.4-4.6); Total Protein 6.6 gm/dL (6.2-8.2)
[2019-07-01] MEDS: BUDESONIDE 0.5 MG/2 ML VIAL.NEB IH SCH ×2 (06:11→18:02)
[2019-07-01] MEDS: predniSONE 20 MG TABLET PO SCH (08:27)
[2019-07-01] MEDS: LISINOPRIL 5 MG TABLET PO SCH (08:27)
[2019-07-01] MEDS: ASPIRIN 81 MG TABLET.DR PO SCH (08:27)
[2019-07-01] MEDS: MONTELUKAST SODIUM 10 MG TABLET PO SCH (08:27)
[2019-07-01] MEDS: PANTOPRAZOLE SODIUM 20 MG TABLET.DR PO SCH (08:27)
[2019-07-01] MEDS: ENOXAPARIN SODIUM 40 MG/0.4 ML SYRG SC SCH (10:25)
[2019-07-01] MEDS: LEVOFLOXACIN 500 MG TABLET PO SCH (10:26)
--- NOTE | 2019-07-01 15:35 | PN ---
Subjective - Date and Time Seen Date: 07/01/19 Time: 10:00 Subjective Narrative: Job Dickey is a 54-year-old male patient of Dr. Elliott admitted yesterday for acute exacerbation of COPD with hypoxemia. He does not feel much improved today and still gets dyspneic with walking and his oxygen sats dropped into the mid to upper 80s when walking. At rest he is fairly comfortable. [facility] and have approved his stay again today. He has no other requests or complaints. Objective - Review of Systems Generalized/Overall Review: Reports: No Symptoms Reported, Malaise EENTM: Reports: No Symptoms Reported Respiratory: Reports: Cough, Shortness of Breath, Wheezing Cardiac: Reports: No Symptoms Reported Abdominal: Reports: No Symptoms Reported Genitourinary Symptoms: Reports: No Symptoms Reported Musculoskeletal Complaints: Reports: No Symptoms Reported Neurological: Reports: No Symptoms Reported Skin: Reports: No Symptoms Reported Endocrine: Reports: No Symptoms Reported - Vitals Vitals: Last Vital Signs Temp 36.0 C 07/01/19 10:00 Pulse 92 07/01/19 15:23 Resp 20 07/01/19 15:23 BP 121/81 07/01/19 10:00 Pulse Ox 92 L 07/01/19 15:13 - Abnormal Lab Findings Abnormal Lab Findings: Abnormal Lab Results 07/01/19 Range/Units 05:40 RBC 4.15 L (4.7-6.0) M/mm3 Hct 40.7 L (42.0-52.0) % MCH 33.7 H (27-31) pg Immature Gran % (Auto) 1.00 H (0.001-0.429) % Immature Gran # (Auto) 0.10 H (0.000-0.0310) K/mm3 Lymphocytes % 19.0 L (20-51) % Monocytes % 11.1 H (0.0-9) % Neutrophils # 6.6 H (1.3-6.0) K/mm3 Monocytes # 1.1 H (0.0-1.0) k/mm3 - EKG/Xray Findings Interpretation: Reviewed by me - Exam Constitutional: Present: Alert, Oriented x3, Cooperative, Well developed, Well nourished, Mild distress ENT Exam: Present: normal ENT inspection, hearing grossly normal, pharynx normal, TMs normal Neck: Present: non-tender Breasts: Present: Exam deferred Respiratory: Present: chest non-tender, accessory muscle use - When walking., rhonchi, wheezing, expiration (prolonged) Cardiovascular/Chest: Present: normal peripheral pulses, regular rate, rhythm, no chest tenderness, no edema, no gallop, no JVD, no murmur, no rub Abdomen: Present: Normal bowel sounds, soft, nontender, nondistended /Rectal: Present: Exam deferred Extremity: Present: normal range of motion, non-tender, normal inspection, no pedal edema Skin Exam: Present: normal color, warm/dry, no cyanosis Lymphatic: Present: no adenopathy Neurologic: Present: rn ante partum II-XII nml as tested, normal cerebellar test, no motor/sensory deficits, alert, normal mood/affect, oriented x 3 Appearance: Present: appropriate appearance, appropriate insight, neat, no memory impairment Eye contact: Present: cooperative, good eye contact, normal speech Thoughts: Present: normal thought pattern, no apparent hallucination Assessment/Plan Plan Narrative: 1. Continue respiratory therapy treatments 2. Give Solu-Medrol IV, and hold oral prednisone. I will reassess tomorrow. 3. Otherwise continue current therapy and reassess tomorrow 4. Morning lab ordered - Problems/Diagnosis (1) COPD exacerbation Problem: Acute (2) COPD (chronic obstructive pulmonary disease) with acute bronchitis Problem: Acute (3) Smoking 1/2 pack a day or less Problem: Chronic
[2019-07-01] MEDS ORDERED: ALBUTEROL SULFATE/IPRATROPIUM 3 ML NEBU IH SCH (15:45)
[2019-07-01] MEDS: METHYLPREDNISOLONE SOD SUCC/PF 40 MG/ML VIAL IV SCH ×2 (17:09→23:06)
[2019-07-01] MEDS: ALBUTEROL SULFATE/IPRATROPIUM 3 ML NEBU IH SCH ×2 (18:04→22:07)
[2019-07-01] MEDS: hydrOXYzine HCL 25 MG TABLET PO SCH (20:19)
[2019-07-01] MEDS: ROSUVASTATIN CALCIUM 20 MG TABLET PO SCH (20:20)
[2019-07-02] MEDS: ALBUTEROL SULFATE/IPRATROPIUM 3 ML NEBU IH SCH ×3 (03:03→10:21)
[2019-07-02] MEDS: METHYLPREDNISOLONE SOD SUCC/PF 40 MG/ML VIAL IV SCH ×4 (04:20→21:37)
[2019-07-02] MEDS: BUDESONIDE 0.5 MG/2 ML VIAL.NEB IH SCH ×2 (06:23→18:04)
[2019-07-02] MEDS: PANTOPRAZOLE SODIUM 20 MG TABLET.DR PO SCH (06:50)
[2019-07-02 07:24] LABS: Hematocrit 44.7 % (42.0-52.0); Hemoglobin 15.7 gm/dL (13.5-18.0); Mean Cell Volume 96.5 fl (78-100); Mean Corpuscular Hemoglobin 33.9 pg (27-31); Mean Corpuscular Hgb Conc 35.1 g/dl (32-36); Mean Platelet Volume 8.6 fl (8-11.3); Neutrophil # 10.7 K/mm3 (1.3-6.0); Neutrophil % 89.2 % (42-75.0); Platelet Count 274 K/mm3 (150-450); Red Blood Count 4.63 M/mm3 (4.7-6.0); Red Cell Distribution Width 11.9 % (11.5-14.0); White Blood Count 11.9 K/mm3 (4.0-10.5)
[2019-07-02 07:37] LABS: Albumin * 3.9 gm/dl (3.4-5.0); Anion Gap 16.2 mmol/L (6.8-13.8); BUN/Creatinine Ratio 15.6 (9.0-21.6); Bilirubin, Total 0.4 mg/dL (0.0-1.1); Ca. Corrected For Albumin 8.9 mg/dL (8.4-10.2); Calcium * 9.1 mg/dL (7.9-10.9); Carbon Dioxide 26.9 mmol/L (24-32.6); Potassium 4.1 mmol/L (3.4-4.6); Total Protein 7.6 gm/dL (6.2-8.2)
[2019-07-02] MEDS: LISINOPRIL 5 MG TABLET PO SCH (08:39)
[2019-07-02] MEDS: MONTELUKAST SODIUM 10 MG TABLET PO SCH (08:39)
[2019-07-02] MEDS: ASPIRIN 81 MG TABLET.DR PO SCH (08:39)
[2019-07-02] MEDS ORDERED: predniSONE 1 MG TABLET PO SCH ×2 (09:00)
[2019-07-02] MEDS ORDERED: NON-FORMULARY 1 DOSE DOSE (Tiotropium Br/Olodaterol Hcl [Stiolto Respimat Inhal Spray] 2 P IH SCH (09:00)
[2019-07-02] MEDS ORDERED: predniSONE 5 MG TABLET PO SCH ×2 (09:00)
[2019-07-02] MEDS: LEVOFLOXACIN 500 MG TABLET PO SCH (10:58)
[2019-07-02] MEDS: ENOXAPARIN SODIUM 40 MG/0.4 ML SYRG SC SCH (10:59)
[2019-07-02] MEDS ORDERED: FLUTICASONE PROPION/SALMETEROL 14 PUFF DISK.W.DEV IH SCH (11:30)
[2019-07-02] MEDS ORDERED: LORATADINE 10 MG TABLET PO SCH (11:30)
--- NOTE | 2019-07-02 11:36 | PN ---
Subjective - Date and Time Seen Date: 07/02/19 Time: 09:40 Objective - Review of Systems Generalized/Overall Review: Reports: No Symptoms Reported EENTM: Reports: No Symptoms Reported Respiratory: Reports: Cough, Shortness of Breath, Wheezing. Denies: Orthopnea Cardiac: Reports: No Symptoms Reported Abdominal: Reports: No Symptoms Reported Genitourinary Symptoms: Reports: No Symptoms Reported Musculoskeletal Complaints: Reports: No Symptoms Reported Neurological: Reports: No Symptoms Reported Skin: Reports: No Symptoms Reported Endocrine: Reports: No Symptoms Reported Misc: All systems neg except as marked - Vitals Vitals: Last Vital Signs Temp 36.6 C 07/02/19 07:50 Pulse 98 07/02/19 10:30 Resp 20 07/02/19 10:30 BP 133/86 07/02/19 08:39 Pulse Ox 91 L 07/02/19 10:21 - Abnormal Lab Findings Abnormal Lab Findings: Abnormal Lab Results 07/02/19 07/02/19 Range/Units 07:10 07:10 WBC 11.9 H D (4.0-10.5) K/mm3 RBC 4.63 L (4.7-6.0) M/mm3 MCH 33.9 H (27-31) pg Immature Gran % (Auto) 0.90 H (0.001-0.429) % Immature Gran # (Auto) 0.11 H (0.000-0.0310) K/mm3 Neutrophils % 89.2 H (42-75.0) % Lymphocytes % 7.3 L (20-51) % Neutrophils # 10.7 H (1.3-6.0) K/mm3 Lymphocytes # 0.87 L (1.5-3.5) k/mm3 Chloride 96 L (97-106) mmol/L Anion Gap 16.2 H (6.8-13.8) mmol/L Random Glucose 158 H D (70-110) mg/dL ALT 70 H (19-67) U/L - EKG/Xray Findings XRAY: chest Interpretation: Reviewed by me - From 06/29/2019 - Exam Constitutional: Present: Alert, Oriented x3, Cooperative, Well developed, Well nourished, Mild distress ENT Exam: Present: normal ENT inspection, hearing grossly normal, pharynx normal, TMs normal Neck: Present: non-tender, full range of motion, supple, normal inspection, trachea midline Breasts: Present: Exam deferred Respiratory: Present: chest non-tender, no respiratory distress - At rest. He does have some with exertion., decreased breath sounds, rhonchi, stridor, wheezing, expiration (prolonged), inspiration, No rales Cardiovascular/Chest: Present: normal peripheral pulses, regular rate, rhythm, no chest tenderness, no edema, no gallop, no JVD, no murmur, no rub Abdomen: Present: Normal bowel sounds, soft, nontender, nondistended, no rebound tenderness, no hepatospenomegaly, no masses /Rectal: Present: Exam deferred Extremity: Present: normal range of motion, non-tender, normal inspection, no pedal edema, no calf tenderness, normal capillary refill Skin Exam: Present: normal color, warm/dry, no cyanosis Lymphatic: Present: no adenopathy Neurologic: Present: dialysis clinical manager II-XII nml as tested, normal cerebellar test, no motor/sensory deficits, alert, normal mood/affect, oriented x 3 Appearance: Present: appropriate appearance, appropriate insight, neat, no memory impairment Eye contact: Present: cooperative, good eye contact, normal speech Thoughts: Present: normal thought pattern, no apparent hallucination, other Assessment/Plan Plan Narrative: Job is unimproved by adding IV Solu-Medrol 60 mg every 6 hours for which she has had 2 doses. In fact his O2 sats have been slightly lower. In reviewing his meds actually he is on a drying antihistamine, hydroxyzine, and have elected to discontinue that and give him temazepam for sleep to get away from the anticholinergic effects that can aggravate asthma. Also he is on lisinopril which I changed to losartan in case he has any sensitivity to ANKUSH inhibitors. Also I have added Claritin as a nondrying antihistamine and Pepcid as an H2 antagonist. I am adding Advair 250/51 puff twice daily. If this is not successful then I would consider adding xanthines. - Problems/Diagnosis (1) COPD exacerbation Problem: Acute (2) COPD (chronic obstructive pulmonary disease) with acute bronchitis Problem: Acute (3) Smoking 1/2 pack a day or less Problem: Chronic
[2019-07-02] MEDS: ALBUTEROL SULFATE 2.5 MG/0.5 ML VIAL.NEB IH PRN ×2 (14:28→21:42)
[2019-07-02] MEDS ORDERED: FORMOTEROL FUMARATE 20 MCG/2 ML VIAL IH SCH ×2 (19:00→21:00)
--- NOTE | 2019-07-02 19:53 | DS ---
Transfer Discharge Summary - Diagnosis(s)/Problems (1) COPD exacerbation Problem: Acute (2) COPD (chronic obstructive pulmonary disease) with acute bronchitis Problem: Acute (3) Smoking 1/2 pack a day or less Problem: Chronic - Course Description of Stay: Job Salamanca is a 54-year-old male who presented to ER with shortness of breath and hypoxemia. He has a history of COPD and asthma. He is not been febrile and there is been no significant productive cough certainly nothing purulent. He is a usual patient at the [facility] in [place] but due to the severity of his shortness of breath he came to us. [facility] This evening they called and said they had a bed and would accept him in transfer. He has been on a combination of short acting beta-2 agonist therapy and ipratropium bromide as well as budesonide twice daily. He was getting the DuoNeb treatments every 4 hours. He is also had been on prednisone and was being tapered and was at 18 mg on time of admission. It was initially continued but he was not improving. I changed him to IV Solu-Medrol 60 mg every 6 hours and he did not improve. I changed him to's albuterol with budesonide and nebulizer treatments twice daily starting today. I also discontinued the hydroxyzine and put him on Claritin 10 mg daily and famotidine 20 mg twice daily. He is already on Singulair 10 mg daily. Thus far he has not improved enough to wean his oxygen and he has been on 1 to 3 L since admission. He has required 3 to 3-1/2 L today to keep his oxygen saturations above 90%. The rest of his vital signs have been stable. Procedures Performed: none - Results and Findings Results and Findings: Laboratory Results - last 24 hr 07/02/19 07/02/19 07:10 07:10 WBC 11.9 H D RBC 4.63 L Hgb 15.7 Hct 44.7 MCV 96.5 MCH 33.9 H MCHC 35.1 RDW 11.9 Plt Count 274 MPV 8.6 Immature Gran % (Auto) 0.90 H Immature Gran # (Auto) 0.11 H Neutrophils % 89.2 H Lymphocytes % 7.3 L Monocytes % 2.3 Eosinophils % 0.0 Basophils % 0.3 Nucleated RBC % 0.0 Neutrophils # 10.7 H Lymphocytes # 0.87 L Monocytes # 0.3 Eosinophils # 0.0 Absolute Basophils 0.0 Sodium 135 Plasma Sodium 136 Potassium 4.1 Chloride 96 L Carbon Dioxide 26.9 Anion Gap 16.2 H BUN 17 Creatinine 1.09 Est GFR (Non-Af Amer) 75 BUN/Creatinine Ratio 15.6 Random Glucose 158 H D Calcium 9.1 Calcium Adj for Albumin 8.9 Total Bilirubin 0.4 AST 24 ALT 70 H Alkaline Phosphatase 64 Total Protein 7.6 Albumin 3.9 - Medications Medications: Active Medications Acetaminophen (Tylenol) 650 mg PO Q4H PRN PRN Reason: Mild pain (pain scale 1-3) Stop: 07/30/19 01:05 Last Admin: 06/30/19 01:13 Dose: 650 mg Documented by: Albuterol Sulfate (Albuterol Sulfate 2.5 Mg/0.5ml) 2.5 mg IH Q4H PRN PRN Reason: Bronchospasm Stop: 08/01/19 12:30 Last Admin: 07/02/19 14:28 Dose: 2.5 mg Documented by: Aspirin (Aspirin Enteric Coated) 81 mg PO DAILY [facility] Stop: 07/30/19 09:01 Last Admin: 07/02/19 08:39 Dose: 81 mg Documented by: Budesonide (Pulmicort Respules) 0.5 mg IH BIDRT [facility] Stop: 07/30/19 09:01 Last Admin: 07/02/19 18:04 Dose: 0.5 mg Documented by: Enoxaparin Sodium (Lovenox) 40 mg SC Q24H [facility] Stop: 07/30/19 10:46 Last Admin: 07/02/19 10:59 Dose: 40 mg Documented by: Formoterol Fumarate (Perforomist) 20 mcg IH BIDRT [facility] Stop: 08/01/19 19:01 Last Admin: 07/02/19 18:04 Dose: 20 mcg Documented by: Levofloxacin (Levaquin) 500 mg PO DAILY@1100 [facility]; Protocol Stop: 07/30/19 11:01 Last Admin: 07/02/19 10:58 Dose: 500 mg Documented by: Loratadine (Claritin) 10 mg PO DAILY [facility] Stop: 08/01/19 11:31 Last Admin: 07/02/19 12:47 Dose: 10 mg Documented by: Methylprednisolone Sodium Succinate (Solu-Medrol) 60 mg IV Q6H [facility] Stop: 07/31/19 16:31 Last Admin: 07/02/19 16:18 Dose: 60 mg Documented by: Montelukast Sodium (Singulair) 10 mg PO DAILY DI Stop: 07/30/19 09:01 Last Admin: 07/02/19 08:39 Dose: 10 mg Documented by: Pantoprazole Sodium (Protonix) 20 mg PO DAILY@0700 [facility] Stop: 07/30/19 07:01 Last Admin: 07/02/19 06:50 Dose: 20 mg Documented by: Rosuvastatin Calcium (Crestor) 20 mg PO [facility] Stop: 07/29/19 21:01 Last Admin: 07/01/19 20:20 Dose: 20 mg Documented by: Discontinued Medications Albuterol Sulfate (Albuterol Sulfate 2.5 Mg/0.5ml) 2.5 mg IH ONCE ONE Stop: 06/29/19 14:39 Last Admin: 06/29/19 14:45 Dose: 2.5 mg Documented by: Albuterol Sulfate (Albuterol Sulfate 2.5 Mg/0.5ml) 2.5 mg IH ONCE ONE Stop: 06/29/19 16:15 Last Admin: 06/29/19 16:17 Dose: 2.5 mg Documented by: Albuterol/Ipratropium (Duoneb 2.5-0.5mg/3ml Soln) 3 ml IH Q4H PRN PRN Reason: sob Stop: 07/29/19 17:01 Last Admin: 07/01/19 15:13 Dose: 3 ml Documented by: Albuterol/Ipratropium (Duoneb 2.5-0.5mg/3ml Soln) 3 ml IH Q4H DI Stop: 07/31/19 15:46 Last Admin: 07/01/19 15:54 Dose: Not Given Documented by: Albuterol/Ipratropium (Duoneb 2.5-0.5mg/3ml Soln) 3 ml IH Q4HRT [facility] Stop: 07/31/19 19:01 Last Admin: 07/02/19 10:21 Dose: 3 ml Documented by: Hydroxyzine HCl (Atarax) 50 mg PO [facility] Stop: 01/04/20 21:01 Last Admin: 07/01/19 20:19 Dose: 50 mg Documented by: Levofloxacin/Dextrose (Levaquin) 500 mg in 100 mls @ 100 mls/hr IV ONCE ONE; Protocol Stop: 06/29/19 17:59 Last Infusion: 06/29/19 17:39 Dose: Infused Documented by: Lisinopril (Zestril) 5 mg PO DAILY [facility] Stop: 07/30/19 09:01 Last Admin: 07/02/19 08:39 Dose: 5 mg Documented by: Prednisone (Prednisone) 40 mg PO DAILY [facility] Stop: 07/30/19 09:01 Last Admin: 07/01/19 08:27 Dose: 40 mg Documented by: - Disposition Disposition: SD Facility Condition: Fair Discharge Date: 07/02/19 Discharge Time: 19:30
[2019-07-02] MEDS: ROSUVASTATIN CALCIUM 20 MG TABLET PO SCH (20:08)
[2019-07-02] MEDS ORDERED: TEMAZEPAM 15 MG CAPSULE PO SCH (21:00)
[2019-07-02] MEDS ORDERED: BUDESONIDE 0.25 MG/2 ML VIAL.NEB IH SCH (21:00)
[2019-07-02] MEDS ORDERED: FAMOTIDINE 20 MG TABLET PO SCH (21:00)
[2019-07-02 22:57] VITALS: BP 140/98
[2019-07-03] MEDS ORDERED: LOSARTAN POTASSIUM 50 MG TABLET PO SCH (09:00)
== END 2019-07-02 22:45 | DRG 192 ==
LOC: MS 14:08 → ER 14:08 → MS 17:07
PROVIDERS: ADMIT Internal Medicine; ATTEND Internal Medicine
CPT/HCPCS: 36415; 36600; 71020; 71046; 80053; 82803; 83735; 84484; 85025; 87040; 93005; 94640; 94664; 96365; 99285; G0378

== ENCOUNTER 2020-07-11 08:57 | Observation (INO) ==
[2020-07-11] MEDS ORDERED: METHYLPREDNISOLONE SOD SUCC/PF 125 MG/2 ML VIAL IV ONE (09:13)
[2020-07-11] MEDS ORDERED: ALBUTEROL SULFATE/IPRATROPIUM 3 ML NEBU IH ONE ×2 (09:15→09:16)
[2020-07-11] MEDS ORDERED: ALBUTEROL SULFATE 2.5 MG/0.5 ML VIAL.NEB IH ONE ×3 (09:34→11:20)
--- NOTE | 2020-07-11 09:40 | ERNOTE ---
Dyspnea - Date Date of Service: 07/11/20 - General Presenting Symptoms: shortness of breath Time Seen by Provider: 07/11/20 09:30 Source: patient Exam Limitations: no limitations - Immun/Allergies/Home Medications Immunizations: IMMUNIZATION HX Immunizations Up to Date Yes History of Influenza Vaccine No Hx Pneumococcal Vaccination No Allergies/Adverse Reactions: Allergies No Known Allergies Allergy (Verified 07/11/20 09:01) Home Medications: HOME MEDICATIONS Albuterol Sulfate [Ventolin Hfa] 2 puff IH Q2H PRN #1 inhaler 01/04/15 [Last Taken 06/29/19] Tiotropium Br/Olodaterol HCl [Stiolto Respimat Inhal [place]] 2 puff IH DAILY 04/08/17 [Last Taken Unknown] predniSONE [Prednisone] 15 mg PO DAILY 04/08/17 [Last Taken 06/29/19 09:00] Aspirin [Aspirin EC] 81 mg PO DAILY 09/19/18 [Last Taken 06/29/19] Hydroxyzine HCl 50 mg PO HS 09/19/18 [Last Taken 06/29/19] Montelukast Sodium [Singulair] 10 mg PO DAILY 09/19/18 [Last Taken 06/29/19] Albuterol Sulfate [Albuterol Sulfate 2.5 MG/0.5ML] 1 vial INHALATION Q4H PRN 06/29/19 [Last Taken 06/29/19] Albuterol Sulfate [Proair HFA] 2 puff INHALATION Q6H PRN 03/29/20 [Last Taken Unknown] Losartan Potassium 100 mg PO DAILY 03/29/20 [Last Taken Unknown] Methylprednisolone [Medrol Dosepak] 4 mg PO QID #21 tab 03/29/20 [Last Taken Unknown] Omeprazole 20 mg PO DAILY 07/11/20 [Last Taken Unknown] - History of Present Illness Narrative: Patient presents to the ED for SOB. His chest feels tight. This started 2-3 daysago and has been progressive. Treatments at home haven't helped. Chest tightness he has is like when his lungs flare up. Cough but no hemoptysis. No calf pain or leg swelling. No vomiting. o known fever or sick contacts. Sats 87% on arrival, he does not use home oxygen. Severity: severe Treatment [employer]: by patient Initiating event: Reports: unknown Frequency of episodes: Reports: occassional episodes Modifying Factors - (Improves): Reports: nothing Modifying Factors (Worsens): Reports: activity Associated Symptoms-Dyspnea: Reports: chest pain/discomfort, cough, wheezing. Denies: fever/chills, palpitations, leg/calf pain, ankle/leg swelling, weakness Prior Treatment: Denies: recently seen Review of Systems - Review of Systems Constitutional: Absent: fever EYE: Present: no symptoms reported ENT: Absent: throat swelling Respiratory: Present: See HPI Cardiology: Present: See HPI Gastrointestinal/Abdominal: Absent: abdominal pain Genitourinary: Present: no symptoms reported Neurological: Absent: weakness All Other Systems: All systems neg except as marked Medical History (Last Reviewed 07/11/20 @ 09:39 by Alonzo Marina MD) Asthma COPD (chronic obstructive pulmonary disease) Surgical History: Surgical History (Last Reviewed 07/11/20 @ 09:39 by Alonzo Marina MD) No pertinent past surgical history Family History: Family History (Last Reviewed 07/11/20 @ 09:39 by Alonzo Marina MD) Other Family history non-contributory Social History: (Last Reviewed 07/11/20 @ 09:39 by Alonzo Marina MD) Tobacco: Smoking Status: Current every day smoker Smoking cigarettes per day: 3 Alcohol: alcohol intake: current alcohol intake frequency: 3 or more drinks per day Substance Use: substance use type: does not use Physical Exam - Physical Exam General Appearance: Present: alert, mild distress, other - getting breathing treatment Head Exam: Present: normal inspection, no evidence of injury Eye Exam: Normal inspection: bilateral, PERRL: bilateral Ears, Nose, Throat: Present: normal ENT inspection Neck: Present: normal inspection Respiratory: Present: respiratory distress, wheezing, other - Bilateral wheezes, mild tachypnea . Absent: stridor Cardiovascular/Chest: Present: normal peripheral pulses, tachycardia Gastrointestinal/Abdominal: Present: normal bowel sounds, nontender, nondistended, soft Back Exam: Absent: CVA tenderness (R), CVA tenderness (L) Extremity Exam: Present: normal inspection, normal range of motion Neurological Exam: Present: alert, no motor/sensory deficits Skin Exam: Present: normal color, warm/dry Progress - Results and Orders Patient's Lab Results:: I have reviewed the patient's lab results. - Vital Signs Patient's Vital Signs:: I have reviewed the patient's vital signs. Vital Signs: Vital Signs 07/11/20 08:57 07/11/20 09:25 07/11/20 09:31 Temperature 36.7 C Pulse Rate 114 H 114 H 111 H Respiratory Rate 30 H 28 H Blood Pressure 158/63 H O2 Sat by Pulse Oximetry 87 L 88 L - EKG EKG #1 EKG read: Interp. by me EKG Comments: Sinus tachycardia rate 111. Non-specific ST/T wave changes, no STEMI noted. - X-Ray X-Ray #1 X-Ray: chest Interpretation: Interp. by me X-ray Comments: I personally reviewed CXR image as well as official radiology report - Progress/Reassessment Chief Complaint: Dyspnea Progress Note-Subjective: 07/11/20 11:58 3 Nebs given and IV solumedrol, wheezing improved but persistently hypoxia at 87%. Oxygen placed. Continuous neb initiated d/t ongoing wheezing but WOB is back to normal. [facility]'d to admit here. Patient is agreeable. I discussed the case with Dr Caceres who will admit. Departure Clinical Impression: COPD exacerbation, Hypoxia - Departure Disposition: Still a patient Condition: Fair
[2020-07-11 10:31] LABS: Hematocrit 49.3 % (42.0-52.0); Hemoglobin 16.2 gm/dL (13.5-18.0); Mean Cell Volume 102.9 fl (78-100); Mean Corpuscular Hemoglobin 33.8 pg (27-31); Mean Corpuscular Hgb Conc 32.9 g/dl (32-36); Mean Platelet Volume 8.9 fl (8-11.3); Neutrophil # 5.9 K/mm3 (1.3-6.0); Neutrophil % 68.8 % (42-75.0); Platelet Count 241 K/mm3 (150-450); Red Blood Count 4.79 M/mm3 (4.7-6.0); Red Cell Distribution Width 11.8 % (11.5-14.0); White Blood Count 8.6 K/mm3 (4.0-10.5)
[2020-07-11 10:40] LABS: ALT 93 U/L (19-67); AST 61 U/L (0-48); Albumin * 3.7 gm/dl (3.4-5.0); Alkaline Phosphatase * 61 U/L (50-170); Anion Gap 13.4 mmol/L (6.8-13.8); BNP * 13 pg/mL (5-140); BUN/Creatinine Ratio 12.6 (9.0-21.6); Bilirubin, Total 0.4 mg/dL (0.0-1.1); Blood Urea Nitrogen 11 mg/dL (6-23); Ca. Corrected For Albumin 8.6 mg/dL (8.4-10.2); Calcium * 8.7 mg/dL (7.9-10.9); Carbon Dioxide 24.6 mmol/L (24-32.6); Chloride 104 mmol/L (97-106); Glucose * 168 mg/dL (70-110); Sodium 138 mmol/L (132-142); Total Protein 7.4 gm/dL (6.2-8.2)
[2020-07-11 10:41] LABS: Troponin I Less than 0.017 ng/mL (0.00-0.10)
[2020-07-11] MEDS ORDERED: ALBUTEROL SULFATE 2.5 MG/0.5 ML VIAL.NEB IH PRN (16:51)
--- NOTE | 2020-07-11 16:56 | HP ---
Chief Complaint - Chief Complaint Date of Service: 07/11/20 Time of Service: 16:55 Chief Complaint: Shortness of breath History of Present Illness: Job is a 55 yo male with COPD. He is not oxygen dependent at home. He presented to the [facility] ER due to worsening shortness of breath for the past 4 days. No fever, chills, or change in cough. He reports following with the [place] for his medical care. He gets COPD exacerbations about once a year around this time. He reports no known sick contacts or travel. His COVID was negative. Chest xray showed no pneumonia. He reports using his rescue inhaler more than usual once about every couple of hours this week. He does admit that he has been out of his Stiolto inhaler for the last month. He admits to smoking a half pack daily. He takes prednisone 15mg daily and the [place] has been trying to gradually wean him off prednisone. Medical History (Last Reviewed 07/11/20 @ 09:39 by Alonzo Marina MD) Asthma COPD (chronic obstructive pulmonary disease) Surgical History: Surgical History (Last Reviewed 07/11/20 @ 09:39 by Alonzo Marina MD) No pertinent past surgical history Family History: Family History (Last Reviewed 07/11/20 @ 09:39 by Alonzo Marina MD) Other Family history non-contributory Social History: (Last Reviewed 07/11/20 @ 09:39 by Alonzo Marina MD) Tobacco: Smoking Status: Current every day smoker Smoking cigarettes per day: 3 Alcohol: alcohol intake: current alcohol intake frequency: 3 or more drinks per day Substance Use: substance use type: does not use Review Of Systems (GEN) - Review of Systems Generalized/Overall Review: Absent: Weakness, Chills, Fever EENTM: Present: No Symptoms Reported Respiratory: Present: Cough, Shortness of Breath Cardiac: Absent: Chest Pain, Edema, Palpitations, Syncope Abdominal: Absent: Nausea, Vomiting Genitourinary: Absent: Burning, Frequency Musculoskeletal: Present: No Symptoms Reported Neurological: Present: No Symptoms Reported Skin: Present: No Symptoms Reported Immunizations: IMMUNIZATION HX Immunizations Up to Date Yes History of Influenza Vaccine No Hx Pneumococcal Vaccination No Allergies/Adverse Reactions: Allergies Allergy/AdvReac Type Severity Reaction Status Date / Time No Known Allergies Allergy Verified 07/11/20 09:01 Home Medications: HOME MEDICATIONS Albuterol Sulfate [Ventolin Hfa] 2 puff IH Q2H PRN #1 inhaler 01/04/15 [Last Taken 06/29/19] Tiotropium Br/Olodaterol HCl [Stiolto Respimat Inhal [place]] 2 puff IH DAILY 04/08/17 [Last Taken 07/11/20] predniSONE [Prednisone] 15 mg PO DAILY 04/08/17 [Last Taken 07/11/20] Aspirin [Aspirin EC] 81 mg PO DAILY 09/19/18 [Last Taken 07/11/20] Hydroxyzine HCl 50 mg PO HS 09/19/18 [Last Taken 07/11/20] Albuterol Sulfate [Albuterol Sulfate 2.5 MG/0.5ML] 1 vial INHALATION Q4H PRN 06/29/19 [Last Taken 06/29/19] Albuterol Sulfate [Proair HFA] 2 puff INHALATION Q6H PRN 03/29/20 [Last Taken 07/11/20] Losartan Potassium 100 mg PO DAILY 03/29/20 [Last Taken 07/11/20] Omeprazole 20 mg PO DAILY 07/11/20 [Last Taken 07/11/20] Exam - Exam Vital Signs: Vital Signs - Last Taken Temp 36.9 C 07/11/20 15:01 Pulse 95 07/11/20 15:01 Resp 22 H 07/11/20 15:01 BP 140/88 H 07/11/20 15:01 Pulse Ox 93 07/11/20 15:01 Constitutional: Present: Alert, Oriented x3, Cooperative ENT Exam: Present: hearing grossly normal Eye Exam: bilateral eye: normal inspection Respiratory: Present: no respiratory distress, wheezing - diffuse Cardiovascular/Chest: Present: regular rate, rhythm, no murmur Peripheral Pulses: radial (R): 2+, radial (L): 2+ Abdomen: Present: Normal bowel sounds, soft, nontender, nondistended Skin Exam: Present: normal color, warm/dry, no cyanosis Appearance: Present: appropriate appearance, appropriate insight Eye contact: Present: cooperative, good eye contact, normal speech Thoughts: Present: normal thought pattern, no apparent hallucination Diagnostic Studies: Abnormal Lab Results 07/11/20 07/11/20 07/11/20 Range/Units 09:34 09:34 09:34 MCV 102.9 H (78-100) fl MCH 33.8 H (27-31) pg Immature Gran % (Auto) 0.80 H (0.001-0.429) % Immature Gran # (Auto) 0.07 H (0.000-0.0310) K/mm3 Eosinophils % 4.4 H (0.0-3.0) % pCO2 (35.0-48.0) mmHg pO2 (83.0-108.0) mmHg HCO3 (21.0-28.0) mmol/L Base Excess (-2.0-3.0) mmol/L ABG O2 Sat (Measured) (94.0-98.0) % Random Glucose 168 H (70-110) mg/dL Lactic Acid, Venous 2.2 H* (0.4-2.0) mmol/L AST 61 H (0-48) U/L ALT 93 H (19-67) U/L 07/11/20 07/11/20 Range/Units 09:45 12:37 MCV (78-100) fl MCH (27-31) pg Immature Gran % (Auto) (0.001-0.429) % Immature Gran # (Auto) (0.000-0.0310) K/mm3 Eosinophils % (0.0-3.0) % pCO2 32.8 L (35.0-48.0) mmHg pO2 54.1 L (83.0-108.0) mmHg HCO3 19.5 L (21.0-28.0) mmol/L Base Excess -4.2 L (-2.0-3.0) mmol/L ABG O2 Sat (Measured) 88.3 L (94.0-98.0) % Random Glucose (70-110) mg/dL Lactic Acid, Venous 2.5 H* (0.4-2.0) mmol/L AST (0-48) U/L ALT (19-67) U/L Laboratory Results WBC 8.6 K/mm3 (4.0-10.5) 07/11/20 09:34 RBC 4.79 M/mm3 (4.7-6.0) 07/11/20 09:34 Hgb 16.2 gm/dL (13.5-18.0) 07/11/20 09:34 Hct 49.3 % (42.0-52.0) 07/11/20 09:34 MCV 102.9 fl (78-100) H 07/11/20 09:34 MCH 33.8 pg (27-31) H 07/11/20 09:34 MCHC 32.9 g/dl (32-36) 07/11/20 09:34 RDW 11.8 % (11.5-14.0) 07/11/20 09:34 Plt Count 241 K/mm3 (150-450) 07/11/20 09:34 MPV 8.9 fl (8-11.3) 07/11/20 09:34 Immature Gran % (Auto) 0.80 % (0.001-0.429) H 07/11/20 09:34 Immature Gran # (Auto) 0.07 K/mm3 (0.000-0.0310) H 07/11/20 09:34 Neutrophils % 68.8 % (42-75.0) 07/11/20 09:34 Lymphocytes % 20.4 % (20-51) 07/11/20 09:34 Monocytes % 5.1 % (0.0-9) 07/11/20 09:34 Eosinophils % 4.4 % (0.0-3.0) H 07/11/20 09:34 Basophils % 0.5 % (0.0-1.0) 07/11/20 09:34 Nucleated RBC % 0.0 k/mm3 (0-1) 07/11/20 09:34 Neutrophils # 5.9 K/mm3 (1.3-6.0) 07/11/20 09:34 Lymphocytes # 1.76 k/mm3 (1.5-3.5) 07/11/20 09:34 Monocytes # 0.4 k/mm3 (0.0-1.0) 07/11/20 09:34 Eosinophils # 0.4 k/mm3 (0.0-0.7) 07/11/20 09:34 Absolute Basophils 0.0 k/mm3 (0.0-0.1) 07/11/20 09:34 pCO2 32.8 mmHg (35.0-48.0) L 07/11/20 09:45 pO2 54.1 mmHg (83.0-108.0) L 07/11/20 09:45 HCO3 19.5 mmol/L (21.0-28.0) L 07/11/20 09:45 Total CO2 20.5 mmol/L (19.0-24.0) 07/11/20 09:45 Base Excess -4.2 mmol/L (-2.0-3.0) L 07/11/20 09:45 ABG pH 7.39 (7.35-7.45) 07/11/20 09:45 ABG O2 Sat (Measured) 88.3 % (94.0-98.0) L 07/11/20 09:45 Sodium 138 mmol/L (132-142) 07/11/20 09:34 Plasma Sodium 139 mmol/L (130-142) 07/11/20 09:34 Potassium 4.0 mmol/L (3.4-4.6) D 07/11/20 09:34 Chloride 104 mmol/L (97-106) 07/11/20 09:34 Carbon Dioxide 24.6 mmol/L (24-32.6) 07/11/20 09:34 Anion Gap 13.4 mmol/L (6.8-13.8) 07/11/20 09:34 BUN 11 mg/dL (6-23) 07/11/20 09:34 Creatinine 0.87 mg/dL (0.4-1.4) 07/11/20 09:34 Est GFR (Non-Af Amer) 97 mL/min (60-130) D 07/11/20 09:34 BUN/Creatinine Ratio 12.6 (9.0-21.6) 07/11/20 09:34 Random Glucose 168 mg/dL (70-110) H 07/11/20 09:34 Lactic Acid, Venous 2.5 mmol/L (0.4-2.0) H* 07/11/20 12:37 Calcium 8.7 mg/dL (7.9-10.9) 07/11/20 09:34 Calcium Adj for Albumin 8.6 mg/dL (8.4-10.2) 07/11/20 09:34 Total Bilirubin 0.4 mg/dL (0.0-1.1) 07/11/20 09:34 AST 61 U/L (0-48) H 07/11/20 09:34 ALT 93 U/L (19-67) H 07/11/20 09:34 Alkaline Phosphatase 61 U/L (50-170) 07/11/20 09:34 Troponin I Less than 0.017 ng/mL (0.00-0.10) 07/11/20 09:34 B-Natriuretic Peptide 13 pg/mL (5-140) 07/11/20 09:34 Total Protein 7.4 gm/dL (6.2-8.2) 07/11/20 09:34 Albumin 3.7 gm/dl (3.4-5.0) 07/11/20 09:34 SARS-CoV-2 (PCR) Not detected (NotDetected) 07/11/20 09:39 Assessment/Plan - Narrative Narrative: Job is a 55 yo male with COPD exacerbation. He was give IV solu- medrol in the ER. I will increase his daily prednisone from 15mg to 40mg due to exacerbation. I will start azithromycin. He will get nebulizers every 6 hours scheduled and every 2hrs prn. He is currently on 2lpm to keep sats 90% or above that was started in the ER due to dropping his sats to 87% on room air. Will work to wean off of oxygen. He will be admitted to observation at this time. Hope to wean off oxygen overnight and if he is on room air and doing well tomorrow he could potentially be discharged to home. If he continues to require oxygen he may need to be changed to inpatient status and need additional days of hospital treatment. - Assessment/Plan (1) Acute respiratory failure with hypoxia Problem: Acute (2) COPD exacerbation Problem: Acute
[2020-07-11] MEDS ORDERED: AZITHROMYCIN 250 MG TABLET PO ONE (17:15)
[2020-07-11] MEDS: ALBUTEROL SULFATE/IPRATROPIUM 3 ML NEBU IH SCH (18:15)
[2020-07-11] MEDS ORDERED: hydrOXYzine HCL 25 MG TABLET PO SCH (21:00)
[2020-07-12] MEDS: ALBUTEROL SULFATE/IPRATROPIUM 3 ML NEBU IH SCH ×2 (00:40→06:10)
[2020-07-12] MEDS ORDERED: PANTOPRAZOLE SODIUM 20 MG TABLET.DR PO SCH (07:00)
--- NOTE | 2020-07-12 08:43 | DS ---
(1) Acute respiratory failure with hypoxia Problem: Resolved (2) COPD exacerbation Problem: Acute Date of Discharge:: 07/12/20 Hospital Course: Job is a 55yo male admitted for COPD exacerbation. He was COVID negative. He initially required 2lpm of oxygen but overnight was weaned off of oxygen and this morning he is feeling well and able to go home. He was monitored through the morning and had no hypoxia on room air. He will be discharged to home on a burst of prednisone up to 40mg daily from his usually 15mg. He may then wean back down to 15mg. I will send him a rx for azithromycin due to COPD exacerbation. [facility] He has been out of his COPD medication and I will renew this. Procedures Performed: none Results and Findings: Lab Pending Results 07/11/20 09:34: WBC 8.6, RBC 4.79, Hgb 16.2, Hct 49.3, MCV 102.9 H, MCH 33.8 H, MCHC 32.9, RDW 11.8, Plt Count 241, MPV 8.9, Immature Gran % (Auto) 0.80 H, Immature Gran # (Auto) 0.07 H, Neutrophils % 68.8, Lymphocytes % 20.4, Monocytes % 5.1, Eosinophils % 4.4 H, Basophils % 0.5, Nucleated RBC % 0.0, Neutrophils # 5.9, Lymphocytes # 1.76, Monocytes # 0.4, Eosinophils # 0.4, Absolute Basophils 0.0 07/11/20 09:34: Sodium 138, Plasma Sodium 139, Potassium 4.0 D, Chloride 104, Carbon Dioxide 24.6, Anion Gap 13.4, BUN 11, Creatinine 0.87, Est GFR (Non-Af Amer) 97 D, BUN/Creatinine Ratio 12.6, Random Glucose 168 H, Calcium 8.7, Calcium Adj for Albumin 8.6, Total Bilirubin 0.4, AST 61 H, ALT 93 H, Alkaline Phosphatase 61, Troponin I Less than 0.017, B-Natriuretic Peptide 13, Total Protein 7.4, Albumin 3.7 07/11/20 09:34: Lactic Acid, Venous 2.2 H* 07/11/20 09:39: SARS-CoV-2 (PCR) Not detected 07/11/20 09:45: pCO2 32.8 L, pO2 54.1 L, HCO3 19.5 L, Total CO2 20.5, Base Excess -4.2 L, ABG pH 7.39, ABG O2 Sat (Measured) 88.3 L 07/11/20 12:37: Lactic Acid, Venous 2.5 H* Discharge Location: Home Disposition: Home self-care Condition: Good Discharge Activity: Activity as tolerated Discharge Diet: General/regular food Referrals: [facility] [Non Staff Physicians] - (Next available with [facility]) Problem Oriented Discharge Instructions to Patient/Family: Chronic Obstructive Pulmonary Disease Exacerbation, [id number] Additional Patient Instructions (free text): TCM appointment at discharge. Prescriptions (Any new or edited meds): predniSONE [Prednisone] 40 mg PO DAILY #14 tab Transmission Status: Pending to [facility] Tiotropium Br/Olodaterol HCl [Stiolto Respimat Inhal [place]] 2 puff IH DAILY #1 Prescription Printed Azithromycin [Zithromax] 250 mg PO DAILY #3 tab Transmission Status: Pending to [facility] Complete Home Medications List: Complete Home Medication List: Albuterol Sulfate [Ventolin Hfa] 2 puff IH Q2H PRN #1 inhaler 01/04/15 predniSONE [Prednisone] 15 mg PO DAILY 04/08/17 Aspirin [Aspirin EC] 81 mg PO DAILY 09/19/18 Hydroxyzine HCl 50 mg PO HS 09/19/18 Albuterol Sulfate [Albuterol Sulfate 2.5 MG/0.5ML] 1 vial INHALATION Q4H PRN 06/29/19 Albuterol Sulfate [Proair HFA] 2 puff INHALATION Q6H PRN 03/29/20 Losartan Potassium 100 mg PO DAILY 03/29/20 Omeprazole 20 mg PO DAILY 07/11/20 Albuterol Sulfate/Ipratropium [Duoneb 2.5-0.5MG/3ML Soln] 3 ml IH Q6HRT nebu 07/12/20 Azithromycin [Zithromax] 250 mg PO DAILY #3 tab 07/12/20 Tiotropium Br/Olodaterol HCl [Stiolto Respimat Inhal [place]] 2 puff IH DAILY #1 07/12/20 predniSONE [Prednisone] 40 mg PO DAILY #14 tab 07/12/20
[2020-07-12] MEDS ORDERED: LOSARTAN POTASSIUM 50 MG TABLET PO SCH (09:00)
[2020-07-12] MEDS ORDERED: predniSONE 20 MG TABLET PO SCH (09:00)
[2020-07-12] MEDS ORDERED: AZITHROMYCIN 250 MG TABLET PO SCH (09:00)
[2020-07-12] MEDS ORDERED: ASPIRIN 81 MG TABLET.DR PO SCH (09:00)
[2020-07-12 13:04] VITALS: BP 120/81
== END 2020-07-12 14:47 | disposition home or self-care (01) ==
LOC: ER 08:57 → MS 08:57
PROVIDERS: ADMIT Family Medicine; ATTEND Family Medicine

== ENCOUNTER 2020-11-22 21:03 | Inpatient (IN) ==
[2020-11-22] MEDS ORDERED: ALBUTEROL SULFATE/IPRATROPIUM 3 ML NEBU IH ONE ×2 (21:09→21:15)
[2020-11-22] MEDS ORDERED: MAGNESIUM SULFATE IN WATER 50 ML IV ONE (21:11)
--- NOTE | 2020-11-22 21:22 | ERNOTE ---
Dyspnea - Date Date of Service: 11/22/20 - General Presenting Symptoms: shortness of breath, difficulty of breathing Time Seen by Provider: 11/22/20 21:10 Source: patient, EMS - Immun/Allergies/Home Medications Immunizations: IMMUNIZATION HX Immunizations Up to Date Yes History of Influenza Vaccine Yes Allergies/Adverse Reactions: Allergies dog dander Adverse Reaction (Verified 11/22/20 21:21) Other Home Medications: HOME MEDICATIONS Albuterol Sulfate [Ventolin Hfa] 2 puff IH Q2H 11/22/20 [Last Taken Unknown] Albuterol Sulfate/Ipratropium [Duoneb 2.5-0.5MG/3ML Soln] 3 ml IH Q6H 11/22/20 [Last Taken Unknown] Aspirin 81 mg PO DAILY 11/22/20 [Last Taken Unknown] Losartan Potassium 100 mg PO DAILY 11/22/20 [Last Taken Unknown] Omeprazole 20 mg PO DAILY 11/22/20 [Last Taken Unknown] Tiotropium Br/Olodaterol HCl [Stiolto Respimat Inhal [place]] 2 puff IH DAILY 11/22/20 [Last Taken Unknown] hydrOXYzine HCL [Atarax] 50 mg PO HS 11/22/20 [Last Taken Unknown] predniSONE [Prednisone] 15 mg PO DAILY 11/22/20 [Last Taken Unknown] - History of Present Illness Narrative: Patient is brought in by EMS for shortness of breath. He has history of COPD and asthma. He smokes. Has not smoked today. Has suffered with COPD and asthma for 4 years, but got worse specifically at 4 AM today. He took several nebulizers at home prior to calling the ambulance. He was given 125 mg of Solu- Medrol in route here. He arrives on CPAP. Denies chest pain, denies additional symptoms. States sometimes his asthma and COPD get worse with allergy season. No ill contacts with similar symptoms. He has not had Covid, has not had Covid immunization. Review of Systems - Review of Systems Constitutional: Present: fatigue. Absent: fever, chills, weakness EYE: Present: no symptoms reported ENT: Present: no symptoms reported Respiratory: Present: shortness of breath, cough, wheezing Cardiology: Absent: chest pain, palpitations, edema Gastrointestinal/Abdominal: Present: no symptoms reported Medical History (Last Reviewed 11/22/20 @ 21:30 by Sharon Woodruff MD) Adopted Asthma COPD (chronic obstructive pulmonary disease) HTN (hypertension) Surgical History: Surgical History (Last Reviewed 11/22/20 @ 21:30 by Sharon Woodruff MD) No pertinent past surgical history Family History: Family History (Last Reviewed 11/22/20 @ 21:30 by Sharon Woodruff MD) Other Foster child Social History: (Last Reviewed 11/22/20 @ 21:30 by Sharon Woodruff MD) Tobacco: Smoking Status: Current every day smoker Smoking cigarettes per day: 10 Alcohol: alcohol intake: current Substance Use: substance use type: does not use Physical Exam - Physical Exam General Appearance: Present: moderate distress, anxious Head Exam: Present: normal inspection Eye Exam: Normal inspection: bilateral, PERRL: bilateral, EOMI: bilateral Ears, Nose, Throat: Present: normal ENT inspection Neck: Present: normal inspection, supple Respiratory: Present: wheezing - minimal breath sounds bilaterally. o2 is 97% on cpap. coarse wheezing, no rales. very diminished. using accessory muscles. retractions. respiratory distress. , other Cardiovascular/Chest: Present: tachycardia Gastrointestinal/Abdominal: Present: normal bowel sounds, nontender, soft Neurological Exam: Present: alert, oriented Skin Exam: Present: normal color, warm/dry Progress - Results and Orders Patient's Lab Results:: I have reviewed the patient's lab results. Results and Orders: Laboratory Tests 11/22/20 11/22/20 11/22/20 21:15 21:15 21:15 WBC Hgb Hct Plt Count PT INR (Anticoag Therapy) PTT ([place]) pCO2 pO2 HCO3 Total CO2 Base Excess ABG pH ABG O2 Sat (Measured) Sodium 140 Potassium 3.8 Chloride 105 Carbon Dioxide 23.9 L Anion Gap 14.9 H BUN 20 Creatinine 0.86 Lactic Acid, Venous 1.7 Total Bilirubin 0.8 AST 23 ALT 53 Troponin I Less than 0.017 B-Natriuretic Peptide 43 Procalcitonin Less than 0.05 L SARS-CoV-2 (PCR) 11/22/20 11/22/20 11/22/20 21:15 21:15 21:15 WBC 12.2 H Hgb 16.9 Hct 49.8 Plt Count 271 PT 10.7 INR (Anticoag Therapy) 1.03 PTT ([place]) 25.7 pCO2 40.7 pO2 55.8 L HCO3 22.0 Total CO2 23.3 Base Excess -3.3 L ABG pH 7.35 ABG O2 Sat (Measured) 87.7 L Sodium Potassium Chloride Carbon Dioxide Anion Gap BUN Creatinine Lactic Acid, Venous Total Bilirubin AST ALT Troponin I B-Natriuretic Peptide Procalcitonin SARS-CoV-2 (PCR) 11/22/20 21:19 WBC Hgb Hct Plt Count PT INR (Anticoag Therapy) PTT ([place]) pCO2 pO2 HCO3 Total CO2 Base Excess ABG pH ABG O2 Sat (Measured) Sodium Potassium Chloride Carbon Dioxide Anion Gap BUN Creatinine Lactic Acid, Venous Total Bilirubin AST ALT Troponin I B-Natriuretic Peptide Procalcitonin SARS-CoV-2 (PCR) Not detected - Vital Signs Patient's Vital Signs:: I have reviewed the patient's vital signs. Vital Signs: Vital Signs 11/22/20 21:03 Temperature 36.8 C Pulse Rate 93 Respiratory Rate 24 H Blood Pressure 143/88 H - EKG EKG #1 EKG: NSR EKG Comments: EKG shows sinus rhythm, possible old MS, no acute changes, ventricular rate is 92. - X-Ray X-Ray #1 X-Ray: chest Interpretation: Interp. by me X-ray Comments: Hyperexpansion noted, no signs of pneumonia, no signs of atelectasis. - Progress/Reassessment Chief Complaint: Dyspnea Progress:: Improved Progress Note-Subjective: 11/22/20 22:14 Patient was placed on a BiPAP upon arrival, received a DuoNeb, ABGs, labs, EKG etc. The BiPAP and initial nebulizer helped somewhat. He was then given magnesium 2 g over 20 minutes. Continuous nebulizer was then initiated. He did stabilize, stated he felt better, vital signs remained stable throughout. O2 sat on no supplemental oxygen 92%, bipap settings 14/8, resp rate of 12. Blood pressure 132/85, pulse of 76. He is resting comfortably. [facility] is a [facility] is [facility]. His transportation is not covered, although hospitalization there is covered. He does not want to pay for his ambulance ride to the [facility]. He would prefer to use alternative insurance and stay here. Hospitalist contacted. 11/22/20 23:03 Patient's Covid test is negative. He continues to be stable, he is resting comfortably. BiPAP setting remains unchanged. Continuous nebulizer is discontinued for the time being. Current vital signs are blood pressure 126/75, oxygen saturation 90%, pulse is 76. Case is discussed with hospitalist. He is admitted here in stable condition. 11/23/20 04:58 Departure Clinical Impression: Asthma exacerbation in COPD - Departure Disposition: Still a patient Condition: Fair
[2020-11-22 21:29] LABS: Hematocrit 49.8 % (42.0-52.0); Hemoglobin 16.9 gm/dL (13.5-18.0); Mean Cell Volume 98.6 fl (78-100); Mean Corpuscular Hemoglobin 33.5 pg (27-31); Mean Corpuscular Hgb Conc 33.9 g/dl (32-36); Mean Platelet Volume 8.7 fl (8-11.3); Neutrophil # 9.6 K/mm3 (1.3-6.0); Neutrophil % 78.8 % (42-75.0); Platelet Count 271 K/mm3 (150-450); Red Blood Count 5.05 M/mm3 (4.7-6.0); Red Cell Distribution Width 12.2 % (11.5-14.0); White Blood Count 12.2 K/mm3 (4.0-10.5)
[2020-11-22] MEDS ORDERED: ALBUTEROL SULFATE 2.5 MG/0.5 ML VIAL.NEB IH ONE (21:31)
[2020-11-22 21:39] LABS: Prothrombin Time (Patient) 10.7 Seconds (9.1-10.7)
[2020-11-22 21:40] LABS: INR 1.03 INR (0.92-1.08); Partial Thrombolplastin Time 25.7 Seconds (24-32)
[2020-11-22] MEDS: ALBUTEROL SULFATE 2.5 MG/0.5 ML VIAL.NEB IH ONE (21:45)
[2020-11-22 21:54] LABS: ALT 53 U/L (19-67); AST 23 U/L (0-48); Albumin * 3.9 gm/dl (3.4-5.0); Alkaline Phosphatase * 52 U/L (50-170); Anion Gap 14.9 mmol/L (6.8-13.8); BNP * 43 pg/mL (5-140); BUN/Creatinine Ratio 23.3 (9.0-21.6); Bilirubin, Total 0.8 mg/dL (0.0-1.1); Blood Urea Nitrogen 20 mg/dL (6-23); Ca. Corrected For Albumin 8.9 mg/dL (8.4-10.2); Calcium * 9.1 mg/dL (7.9-10.9); Carbon Dioxide 23.9 mmol/L (24-32.6); Chloride 105 mmol/L (97-106); Glucose * 103 mg/dL (70-110); Potassium 3.8 mmol/L (3.4-4.6); Sodium 140 mmol/L (132-142); Total Protein 7.2 gm/dL (6.2-8.2); Troponin I Less than 0.017 ng/mL (0.00-0.10)
[2020-11-23] MEDS ORDERED: ALBUTEROL SULFATE 2.5 MG/0.5 ML VIAL.NEB IH ONE (07:23)
[2020-11-23] MEDS: ALBUTEROL SULFATE 2.5 MG/0.5 ML VIAL.NEB IH ONE (07:30)
[2020-11-23] MEDS ORDERED: LORazepam 0.5 MG TABLET PO ONE (07:52)
[2020-11-23] MEDS ORDERED: AZITHROMYCIN 250 MG TABLET PO ONE (08:05)
[2020-11-23] MEDS ORDERED: ALBUTEROL SULFATE/IPRATROPIUM 3 ML NEBU IH SCH ×2 (08:15→13:00)
[2020-11-23] MEDS: LOSARTAN POTASSIUM 50 MG TABLET PO SCH (08:54)
[2020-11-23] MEDS: ASPIRIN 81 MG TAB.CHEW PO SCH (08:54)
[2020-11-23] MEDS: PANTOPRAZOLE SODIUM 20 MG TABLET.DR PO SCH (08:55)
[2020-11-23] MEDS: predniSONE 20 MG TABLET PO SCH (08:55)
[2020-11-23] MEDS ORDERED: ALBUTEROL SULFATE 2.5 MG/0.5 ML VIAL.NEB IH SCH (11:00)
[2020-11-23] MEDS: ALBUTEROL SULFATE/IPRATROPIUM 3 ML NEBU IH SCH ×2 (12:46→17:09)
[2020-11-23] MEDS: ALBUTEROL SULFATE/IPRATROPIUM 3 ML NEBU IH PRN ×2 (12:48→17:01)
[2020-11-23] MEDS: hydrOXYzine HCL 25 MG TABLET PO SCH (20:32)
--- NOTE | 2020-11-23 22:54 | HP ---
Chief Complaint - Chief Complaint Date of Service: 11/23/20 Time of Service: 09:15 Chief Complaint: Shortness of breath History of Present Illness: Job is a 55 yo male with PMH of asthma and COPD. He reports shortness of breath worsening over the past 48 hours. He reports using a hide cleaner that he thinks triggered his asthma. He denies fever, chills, or sick contacts. He reports using home nebulizer without improvement. He was given 125mg of IV solumedrol in the ER. He does feel a little better but still having shortness of breath. He ambulated with nursing and oxygen dropped to 85% on room air. Medical History (Last Reviewed 11/22/20 @ 21:30 by Sharon Woodruff MD) Adopted Asthma COPD (chronic obstructive pulmonary disease) HTN (hypertension) Surgical History: Surgical History (Last Reviewed 11/22/20 @ 21:30 by Sharon Woodruff MD) No pertinent past surgical history Family History: Family History (Last Reviewed 11/22/20 @ 21:30 by Sharon Woodruff MD) Other Foster child Social History: (Last Reviewed 11/22/20 @ 21:30 by Sharon Woodruff MD) Tobacco: Smoking Status: Current every day smoker Smoking cigarettes per day: 10 Alcohol: alcohol intake: current Substance Use: substance use type: does not use Review Of Systems (GEN) - Review of Systems Generalized/Overall Review: Absent: Weakness, Chills, Fever EENTM: Present: No Symptoms Reported Respiratory: Present: Shortness of Breath, Wheezing. Absent: Cough Cardiac: Absent: Chest Pain, Edema, Palpitations, Syncope Abdominal: Absent: Nausea, Vomiting, Abdominal Pain Genitourinary: Absent: Burning, Frequency Musculoskeletal: Absent: Joint Pain, Back Pain Neurological: Absent: Headache, Anxiety Skin: Absent: Lesions, Rash Endocrine: Present: No Symptoms Reported Immunizations: IMMUNIZATION HX Immunizations Up to Date Yes History of Influenza Vaccine Yes Allergies/Adverse Reactions: Allergies Allergy/AdvReac Type Severity Reaction Status Date / Time dog dander AdvReac Other Verified 11/22/20 21:21 Home Medications: HOME MEDICATIONS Albuterol Sulfate [Ventolin Hfa] 2 puff IH Q2H 11/22/20 [Last Taken Unknown] Albuterol Sulfate/Ipratropium [Duoneb 2.5-0.5MG/3ML Soln] 3 ml IH Q6H 11/22/20 [Last Taken Unknown] Aspirin 81 mg PO DAILY 11/22/20 [Last Taken Unknown] Losartan Potassium 100 mg PO DAILY 11/22/20 [Last Taken Unknown] Omeprazole 20 mg PO DAILY 11/22/20 [Last Taken Unknown] Tiotropium Br/Olodaterol HCl [Stiolto Respimat Inhal [place]] 2 puff IH DAILY 11/22/20 [Last Taken Unknown] hydrOXYzine HCL [Atarax] 50 mg PO HS 11/22/20 [Last Taken Unknown] predniSONE [Prednisone] 15 mg PO DAILY 11/22/20 [Last Taken Unknown] Exam - Exam Vital Signs: Vital Signs - Last Taken Temp 36.7 C 11/23/20 22:44 Pulse 67 11/23/20 22:44 Resp 18 11/23/20 22:44 BP 127/76 11/23/20 22:44 Pulse Ox 96 11/23/20 22:44 Constitutional: Present: Alert, Oriented x3, Cooperative ENT Exam: Present: hearing grossly normal Eye Exam: bilateral eye: normal inspection Respiratory: Present: no respiratory distress, wheezing Cardiovascular/Chest: Present: regular rate, rhythm, no murmur Peripheral Pulses: radial (R): 2+, radial (L): 2+ Abdomen: Present: Normal bowel sounds, soft, nontender, nondistended Extremity: Present: normal inspection Skin Exam: Present: normal color, warm/dry, no cyanosis Neurologic: Present: alert, normal mood/affect, oriented x 3 Appearance: Present: appropriate appearance, appropriate insight Eye contact: Present: cooperative, good eye contact, normal speech Thoughts: Present: normal thought pattern, no apparent hallucination Diagnostic Studies: Microbiology 11/22/20 21:40 Blood Culture - Preliminary Blood NO GROWTH 24 HOURS 11/22/20 21:15 Blood Culture - Preliminary Blood NO GROWTH 24 HOURS Laboratory Results WBC 12.2 K/mm3 (4.0-10.5) H 11/22/20 21:15 RBC 5.05 M/mm3 (4.7-6.0) 11/22/20 21:15 Hgb 16.9 gm/dL (13.5-18.0) 11/22/20 21:15 Hct 49.8 % (42.0-52.0) 11/22/20 21:15 MCV 98.6 fl (78-100) 11/22/20 21:15 MCH 33.5 pg (27-31) H 11/22/20 21:15 MCHC 33.9 g/dl (32-36) 11/22/20 21:15 RDW 12.2 % (11.5-14.0) 11/22/20 21:15 Plt Count 271 K/mm3 (150-450) 11/22/20 21:15 MPV 8.7 fl (8-11.3) 11/22/20 21:15 Immature Gran % (Auto) 0.50 % (0.001-0.429) H 11/22/20 21:15 Immature Gran # (Auto) 0.06 K/mm3 (0.000-0.0310) H 11/22/20 21:15 Neutrophils % 78.8 % (42-75.0) H 11/22/20 21:15 Lymphocytes % 14.0 % (20-51) L 11/22/20 21:15 Monocytes % 5.7 % (0.0-9) 11/22/20 21:15 Eosinophils % 0.7 % (0.0-3.0) 11/22/20 21:15 Basophils % 0.3 % (0.0-1.0) 11/22/20 21:15 Nucleated RBC % 0.0 k/mm3 (0-1) 11/22/20 21:15 Neutrophils # 9.6 K/mm3 (1.3-6.0) H 11/22/20 21:15 Lymphocytes # 1.71 k/mm3 (1.5-3.5) 11/22/20 21:15 Monocytes # 0.7 k/mm3 (0.0-1.0) 11/22/20 21:15 Eosinophils # 0.1 k/mm3 (0.0-0.7) 11/22/20 21:15 Absolute Basophils 0.0 k/mm3 (0.0-0.1) 11/22/20 21:15 PT 10.7 Seconds (9.1-10.7) 11/22/20 21:15 INR (Anticoag Therapy) 1.03 INR (0.92-1.08) 11/22/20 21:15 PTT ([place]) 25.7 Seconds (24-32) 11/22/20 21:15 pCO2 40.7 mmHg (35.0-48.0) 11/22/20 21:15 pO2 55.8 mmHg (83.0-108.0) L 11/22/20 21:15 HCO3 22.0 mmol/L (21.0-28.0) 11/22/20 21:15 Total CO2 23.3 mmol/L (19.0-24.0) 11/22/20 21:15 Base Excess -3.3 mmol/L (-2.0-3.0) L 11/22/20 21:15 ABG pH 7.35 (7.35-7.45) 11/22/20 21:15 ABG O2 Sat (Measured) 87.7 % (94.0-98.0) L 11/22/20 21:15 Sodium 140 mmol/L (132-142) 11/22/20 21:15 Plasma Sodium 140 mmol/L (130-142) 11/22/20 21:15 Potassium 3.8 mmol/L (3.4-4.6) 11/22/20 21:15 Chloride 105 mmol/L (97-106) 11/22/20 21:15 Carbon Dioxide 23.9 mmol/L (24-32.6) L 11/22/20 21:15 Anion Gap 14.9 mmol/L (6.8-13.8) H 11/22/20 21:15 BUN 20 mg/dL (6-23) 11/22/20 21:15 Creatinine 0.86 mg/dL (0.4-1.4) 11/22/20 21:15 Est GFR (Non-Af Amer) 98 mL/min (60-130) 11/22/20 21:15 BUN/Creatinine Ratio 23.3 (9.0-21.6) H 11/22/20 21:15 Random Glucose 103 mg/dL (70-110) 11/22/20 21:15 Lactic Acid, Venous 1.7 mmol/L (0.4-2.0) 11/22/20 21:15 Calcium 9.1 mg/dL (7.9-10.9) 11/22/20 21:15 Calcium Adj for Albumin 8.9 mg/dL (8.4-10.2) 11/22/20 21:15 Total Bilirubin 0.8 mg/dL (0.0-1.1) 11/22/20 21:15 AST 23 U/L (0-48) 11/22/20 21:15 ALT 53 U/L (19-67) 11/22/20 21:15 Alkaline Phosphatase 52 U/L (50-170) 11/22/20 21:15 Troponin I Less than 0.017 ng/mL (0.00-0.10) 11/22/20 21:15 B-Natriuretic Peptide 43 pg/mL (5-140) 11/22/20 21:15 Total Protein 7.2 gm/dL (6.2-8.2) 11/22/20 21:15 Albumin 3.9 gm/dl (3.4-5.0) 11/22/20 21:15 Procalcitonin Less than 0.05 ng/mL (0.05-0.50) L 11/22/20 21:15 SARS-CoV-2 (PCR) Not detected (NotDetected) 11/22/20 21:19 Assessment/Plan - Narrative Narrative: Job is a 55 yo male with asthma exacerbation. Will treat with steroids and duonebs. Will treat with azithromycin for anti-inflammatory properties. Will treat with oxygen due to acute respiratory failure (85% on room air with activity, this is not his usual baseline). Expect 2 midnights to improve asthma exacerbation. - Assessment/Plan (1) Acute respiratory failure with hypoxia Problem: Acute (2) Asthma exacerbation in COPD Problem: Acute
[2020-11-24] MEDS: ALBUTEROL SULFATE/IPRATROPIUM 3 ML NEBU IH SCH ×5 (00:18→18:00)
[2020-11-24] MEDS: PANTOPRAZOLE SODIUM 20 MG TABLET.DR PO SCH (07:29)
[2020-11-24] MEDS: predniSONE 20 MG TABLET PO SCH (08:40)
[2020-11-24] MEDS: AZITHROMYCIN 250 MG TABLET PO SCH (08:40)
[2020-11-24] MEDS: ASPIRIN 81 MG TAB.CHEW PO SCH (08:40)
[2020-11-24] MEDS: LOSARTAN POTASSIUM 50 MG TABLET PO SCH (08:40)
[2020-11-24 10:42] LABS: Hematocrit 47.6 % (42.0-52.0); Hemoglobin 15.8 gm/dL (13.5-18.0); Mean Cell Volume 100.4 fl (78-100); Mean Corpuscular Hemoglobin 33.3 pg (27-31); Mean Corpuscular Hgb Conc 33.2 g/dl (32-36); Mean Platelet Volume 9.4 fl (8-11.3); Neutrophil # 7.4 K/mm3 (1.3-6.0); Neutrophil % 70.7 % (42-75.0); Platelet Count 254 K/mm3 (150-450); Red Blood Count 4.74 M/mm3 (4.7-6.0); Red Cell Distribution Width 12.3 % (11.5-14.0); White Blood Count 10.5 K/mm3 (4.0-10.5)
[2020-11-24 11:02] LABS: Albumin * 3.4 gm/dl (3.4-5.0); Anion Gap 11.7 mmol/L (6.8-13.8); BUN/Creatinine Ratio 26.6 (9.0-21.6); Bilirubin, Total 0.6 mg/dL (0.0-1.1); Ca. Corrected For Albumin 9.1 mg/dL (8.4-10.2); Calcium * 8.9 mg/dL (7.9-10.9); Carbon Dioxide 27.6 mmol/L (24-32.6); Potassium 4.3 mmol/L (3.4-4.6); Total Protein 6.2 gm/dL (6.2-8.2)
[2020-11-24] MEDS: METHYLPREDNISOLONE SOD SUCC/PF 125 MG/2 ML VIAL IV SCH ×3 (11:40→22:04)
[2020-11-24] MEDS: ALBUTEROL SULFATE/IPRATROPIUM 3 ML NEBU IH PRN ×2 (12:50→17:07)
[2020-11-24] MEDS: hydrOXYzine HCL 25 MG TABLET PO SCH (22:04)
--- NOTE | 2020-11-24 23:34 | PN ---
Subjective - Date and Time Seen Date: 11/24/20 Time: 09:30 Subjective Narrative: Job reports not feeling any better. Still short of breath with cough. Wheezing. No fever, chills, nausea, or vomiting. Objective - Vitals Vitals: Last Vital Signs Temp 36.6 C 11/24/20 22:10 Pulse 83 11/24/20 22:10 Resp 15 11/24/20 22:10 BP 100/64 11/24/20 22:10 Pulse Ox 94 11/24/20 22:10 - Abnormal Lab Findings Abnormal Lab Findings: Abnormal Lab Results 11/24/20 11/24/20 Range/Units 10:04 10:04 MCV 100.4 H (78-100) fl MCH 33.3 H (27-31) pg Immature Gran % (Auto) 0.50 H (0.001-0.429) % Immature Gran # (Auto) 0.05 H (0.000-0.0310) K/mm3 Lymphocytes % 19.5 L (20-51) % Neutrophils # 7.4 H (1.3-6.0) K/mm3 BUN 25 H (6-23) mg/dL BUN/Creatinine Ratio 26.6 H (9.0-21.6) Alkaline Phosphatase 45 L (50-170) U/L - Exam Constitutional: Present: Alert, Oriented x3, Cooperative Respiratory: Present: wheezing Cardiovascular/Chest: Present: regular rate, rhythm, no murmur Abdomen: Present: Normal bowel sounds, soft, nontender, nondistended Skin Exam: Present: normal color, warm/dry, no cyanosis Assessment/Plan Plan Narrative: Not improved. Will change prednisone to IV solumedrol. Continue nebs. Continue azithromycin. Attempt to wean from oxygen. - Problems/Diagnosis (1) Acute respiratory failure with hypoxia Problem: Acute (2) Asthma exacerbation in COPD Problem: Acute
[2020-11-25] MEDS: ALBUTEROL SULFATE/IPRATROPIUM 3 ML NEBU IH SCH ×5 (00:39→19:32)
[2020-11-25] MEDS: METHYLPREDNISOLONE SOD SUCC/PF 125 MG/2 ML VIAL IV SCH ×4 (05:23→22:39)
[2020-11-25 06:53] LABS: Albumin * 3.6 gm/dl (3.4-5.0); Anion Gap 11.7 mmol/L (6.8-13.8); BUN/Creatinine Ratio 26.6 (9.0-21.6); Bilirubin, Total 0.6 mg/dL (0.0-1.1); Carbon Dioxide 29.3 mmol/L (24-32.6)
[2020-11-25] MEDS: PANTOPRAZOLE SODIUM 20 MG TABLET.DR PO SCH (07:28)
[2020-11-25 08:42] LABS: Hematocrit 50.5 % (42.0-52.0); Hemoglobin 16.6 gm/dL (13.5-18.0); Mean Cell Volume 101.2 fl (78-100); Mean Corpuscular Hemoglobin 33.3 pg (27-31); Mean Corpuscular Hgb Conc 32.9 g/dl (32-36); Mean Platelet Volume 9.7 fl (8-11.3); Neutrophil # 10.8 K/mm3 (1.3-6.0); Neutrophil % 90.6 % (42-75.0); Platelet Count 285 K/mm3 (150-450); Red Blood Count 4.99 M/mm3 (4.7-6.0); Red Cell Distribution Width 12.1 % (11.5-14.0)
[2020-11-25] MEDS: AZITHROMYCIN 250 MG TABLET PO SCH (09:01)
[2020-11-25] MEDS: LOSARTAN POTASSIUM 50 MG TABLET PO SCH (09:01)
[2020-11-25] MEDS: ASPIRIN 81 MG TAB.CHEW PO SCH (09:01)
[2020-11-25] MEDS: ALBUTEROL SULFATE/IPRATROPIUM 3 ML NEBU IH PRN (17:25)
[2020-11-25] MEDS ORDERED: ACETAMINOPHEN 500 MG TABLET PO PRN (18:34)
[2020-11-25] MEDS: hydrOXYzine HCL 25 MG TABLET PO SCH (20:10)
--- NOTE | 2020-11-25 20:58 | PN ---
Subjective - Date and Time Seen Date: 11/25/20 Time: 07:50 Subjective Narrative: Job reports feeling a little better today. He still dropped to 85% on room air when taken off the oxygen. No fever, chills, nausea, or vomiting. Objective - Vitals Vitals: Last Vital Signs Temp 37.1 C 11/25/20 18:02 Pulse 75 11/25/20 18:02 Resp 20 11/25/20 18:02 BP 120/74 11/25/20 18:02 Pulse Ox 93 11/25/20 18:02 - Abnormal Lab Findings Abnormal Lab Findings: Abnormal Lab Results 11/25/20 11/25/20 Range/Units 06:22 06:22 WBC 12.0 H (4.0-10.5) K/mm3 MCV 101.2 H (78-100) fl MCH 33.3 H (27-31) pg Immature Gran % (Auto) 0.50 H (0.001-0.429) % Immature Gran # (Auto) 0.06 H (0.000-0.0310) K/mm3 Neutrophils % 90.6 H (42-75.0) % Lymphocytes % 6.4 L (20-51) % Neutrophils # 10.8 H (1.3-6.0) K/mm3 Lymphocytes # 0.77 L (1.5-3.5) k/mm3 Potassium 5.0 H (3.4-4.6) mmol/L BUN 25 H (6-23) mg/dL BUN/Creatinine Ratio 26.6 H (9.0-21.6) Random Glucose 149 H D (70-110) mg/dL Alkaline Phosphatase 49 L (50-170) U/L - Exam Constitutional: Present: Alert, Oriented x3, Cooperative ENT Exam: Present: hearing grossly normal Respiratory: Present: wheezing Cardiovascular/Chest: Present: regular rate, rhythm, no murmur Abdomen: Present: Normal bowel sounds, soft, nontender, no masses Skin Exam: Present: normal color, warm/dry, no cyanosis Assessment/Plan Plan Narrative: Job is improved clinically today. Still requiring oxygen. Will continue current treatment. Anticipate discharge in 1-2 days, but I would like to be able to get him off oxygen prior to discharge as he has not been on home oxygen before. - Problems/Diagnosis (1) Acute respiratory failure with hypoxia Problem: Acute (2) Asthma exacerbation in COPD Problem: Acute
[2020-11-25] MEDS ORDERED: IBUPROFEN 400 MG TABLET PO ONE (22:54)
[2020-11-26] MEDS: ALBUTEROL SULFATE/IPRATROPIUM 3 ML NEBU IH SCH ×4 (00:07→18:00)
[2020-11-26] MEDS: METHYLPREDNISOLONE SOD SUCC/PF 125 MG/2 ML VIAL IV SCH ×4 (04:29→22:26)
[2020-11-26 06:30] LABS: Hemoglobin 16.4 gm/dL (13.5-18.0); Mean Corpuscular Hemoglobin 33.5 pg (27-31); Mean Corpuscular Hgb Conc 33.5 g/dl (32-36); Mean Platelet Volume 9.3 fl (8-11.3); Neutrophil # 12.2 K/mm3 (1.3-6.0); Neutrophil % 91.9 % (42-75.0); Platelet Count 281 K/mm3 (150-450); White Blood Count 13.2 K/mm3 (4.0-10.5)
[2020-11-26 06:44] LABS: Albumin * 3.5 gm/dl (3.4-5.0); Anion Gap 13.3 mmol/L (6.8-13.8); BUN/Creatinine Ratio 29.7 (9.0-21.6); Bilirubin, Total 0.5 mg/dL (0.0-1.1); Ca. Corrected For Albumin 9.2 mg/dL (8.4-10.2); Calcium * 9.1 mg/dL (7.9-10.9); Carbon Dioxide 27.3 mmol/L (24-32.6); Potassium 4.6 mmol/L (3.4-4.6); Total Protein 6.7 gm/dL (6.2-8.2)
[2020-11-26] MEDS: LOSARTAN POTASSIUM 50 MG TABLET PO SCH (09:09)
[2020-11-26] MEDS: ASPIRIN 81 MG TAB.CHEW PO SCH (09:09)
[2020-11-26] MEDS: PANTOPRAZOLE SODIUM 20 MG TABLET.DR PO SCH (09:09)
[2020-11-26] MEDS: AZITHROMYCIN 250 MG TABLET PO SCH (09:09)
[2020-11-26] MEDS: ALBUTEROL SULFATE/IPRATROPIUM 3 ML NEBU IH PRN ×2 (11:40→15:08)
[2020-11-26] MEDS: hydrOXYzine HCL 25 MG TABLET PO SCH (20:16)
--- NOTE | 2020-11-26 23:50 | PN ---
Subjective - Date and Time Seen Date: 11/26/20 Time: 08:45 Subjective Narrative: Job reports feeling better. Still dropping to 87% today with activity. He does not feel significantly short of breath at these times. No fever or chills. Objective - Vitals Vitals: Last Vital Signs Temp 36.5 C 11/26/20 22:30 Pulse 72 11/26/20 22:30 Resp 18 11/26/20 22:30 BP 114/67 11/26/20 22:30 Pulse Ox 95 11/26/20 22:30 - Abnormal Lab Findings Abnormal Lab Findings: Abnormal Lab Results 11/26/20 11/26/20 Range/Units 06:26 06:26 WBC 13.2 H (4.0-10.5) K/mm3 MCH 33.5 H (27-31) pg Immature Gran % (Auto) 0.50 H (0.001-0.429) % Immature Gran # (Auto) 0.07 H (0.000-0.0310) K/mm3 Neutrophils % 91.9 H (42-75.0) % Lymphocytes % 3.7 L (20-51) % Neutrophils # 12.2 H (1.3-6.0) K/mm3 Lymphocytes # 0.49 L (1.5-3.5) k/mm3 BUN 30 H (6-23) mg/dL BUN/Creatinine Ratio 29.7 H (9.0-21.6) Random Glucose 147 H (70-110) mg/dL Alkaline Phosphatase 49 L (50-170) U/L - Exam Constitutional: Present: Alert, Oriented x3, Cooperative ENT Exam: Present: hearing grossly normal Respiratory: Present: wheezing Cardiovascular/Chest: Present: regular rate, rhythm, no murmur Abdomen: Present: Normal bowel sounds, soft, nontender, nondistended Skin Exam: Present: normal color, warm/dry, no cyanosis Appearance: Present: appropriate appearance, appropriate insight Eye contact: Present: cooperative, good eye contact, normal speech Assessment/Plan Plan Narrative: Oxygen saturation was running higher on oxygen today, but would still drop with activity on room air. I believe he is close to coming off oxygen completely. He is clinically feeling better and plan to discharge to home in the next 1-2 days without needing oxygen. If he continues to fail oxygen weaning may have to look at discharging with home oxygen. - Problems/Diagnosis (1) Acute respiratory failure with hypoxia Problem: Acute (2) Asthma exacerbation in COPD Problem: Acute
[2020-11-27] MEDS: ALBUTEROL SULFATE/IPRATROPIUM 3 ML NEBU IH SCH ×4 (01:11→12:15)
[2020-11-27] MEDS: METHYLPREDNISOLONE SOD SUCC/PF 125 MG/2 ML VIAL IV SCH ×2 (05:29→11:16)
[2020-11-27] MEDS: PANTOPRAZOLE SODIUM 20 MG TABLET.DR PO SCH (06:54)
[2020-11-27] MEDS: AZITHROMYCIN 250 MG TABLET PO SCH (08:22)
[2020-11-27] MEDS: LOSARTAN POTASSIUM 50 MG TABLET PO SCH (08:22)
[2020-11-27] MEDS: ASPIRIN 81 MG TAB.CHEW PO SCH (08:23)
--- NOTE | 2020-11-27 13:26 | DS ---
(1) Acute respiratory failure with hypoxia Problem: Resolved (2) Asthma exacerbation in COPD Problem: Acute (3) Chronic respiratory failure with hypoxia Problem: Chronic Date of Discharge:: 11/27/20 Hospital Course: Job is a 55 yo male that was admitted for acute respiratory failure secondary to asthma exacerbation. He was started on IV steroids, breathing treatments, and azithromycin. There was no pneumonia present. He gradually improved and was gradually weaned off of oxygen at rest. Today he is still requiring oxygen with activity as he drops to 86% with activity on room air but improves to 97% with rest or with 1lpm of oxygen. He was set up with oxygen at home to be used with activity. He has a pulse oximeter at home to monitor his oxygen. He will be discharged to home this afternoon with prednisone taper and oxygen to use just with activity. Procedures Performed: none Results and Findings: Pending Mircobiology Results 11/22/20 21:40 Blood Blood Culture - Preliminary NO GROWTH AFTER 48 HOURS 11/22/20 21:15 Blood Blood Culture - Preliminary NO GROWTH AFTER 48 HOURS Lab Pending Results 11/22/20 21:15: Sodium 140, Plasma Sodium 140, Potassium 3.8, Chloride 105, Carbon Dioxide 23.9 L, Anion Gap 14.9 H, BUN 20, Creatinine 0.86, Est GFR (Non- Af Amer) 98, BUN/Creatinine Ratio 23.3 H, Random Glucose 103, Calcium 9.1, Calcium Adj for Albumin 8.9, Total Bilirubin 0.8, AST 23, ALT 53, Alkaline Phosphatase 52, Troponin I Less than 0.017, B-Natriuretic Peptide 43, Total Protein 7.2, Albumin 3.9 11/22/20 21:15: Lactic Acid, Venous 1.7 11/22/20 21:15: Procalcitonin Less than 0.05 L 11/22/20 21:15: WBC 12.2 H, RBC 5.05, Hgb 16.9, Hct 49.8, MCV 98.6, MCH 33.5 H, MCHC 33.9, RDW 12.2, Plt Count 271, MPV 8.7, Immature Gran % (Auto) 0.50 H, Immature Gran # (Auto) 0.06 H, Neutrophils % 78.8 H, Lymphocytes % 14.0 L, Monocytes % 5.7, Eosinophils % 0.7, Basophils % 0.3, Nucleated RBC % 0.0, Neutrophils # 9.6 H, Lymphocytes # 1.71, Monocytes # 0.7, Eosinophils # 0.1, Absolute Basophils 0.0 11/22/20 21:15: PT 10.7, INR (Anticoag Therapy) 1.03, PTT ([place]) 25.7 11/22/20 21:15: pCO2 40.7, pO2 55.8 L, HCO3 22.0, Total CO2 23.3, Base Excess - 3.3 L, ABG pH 7.35, ABG O2 Sat (Measured) 87.7 L 11/22/20 21:19: SARS-CoV-2 (PCR) Not detected 11/24/20 10:04: WBC 10.5, RBC 4.74, Hgb 15.8, Hct 47.6, MCV 100.4 H, MCH 33.3 H, MCHC 33.2, RDW 12.3, Plt Count 254, MPV 9.4, Immature Gran % (Auto) 0.50 H, Immature Gran # (Auto) 0.05 H, Neutrophils % 70.7, Lymphocytes % 19.5 L, Monocytes % 7.9, Eosinophils % 1.0, Basophils % 0.4, Nucleated RBC % 0.0, Neutrophils # 7.4 H, Lymphocytes # 2.05, Monocytes # 0.8, Eosinophils # 0.1, Absolute Basophils 0.0 11/24/20 10:04: Sodium 140, Plasma Sodium 140, Potassium 4.3, Chloride 105, Carbon Dioxide 27.6, Anion Gap 11.7, BUN 25 H, Creatinine 0.94, Est GFR (Non-Af Amer) 89, BUN/Creatinine Ratio 26.6 H, Random Glucose 99, Calcium 8.9, Calcium Adj for Albumin 9.1, Total Bilirubin 0.6, AST 22, ALT 49, Alkaline Phosphatase 45 L, Total Protein 6.2, Albumin 3.4 11/25/20 06:22: WBC 12.0 H, RBC 4.99, Hgb 16.6, Hct 50.5, MCV 101.2 H, MCH 33.3 H, MCHC 32.9, RDW 12.1, Plt Count 285, MPV 9.7, Immature Gran % (Auto) 0.50 H, Immature Gran # (Auto) 0.06 H, Neutrophils % 90.6 H, Lymphocytes % 6.4 L, Monocytes % 2.4, Eosinophils % 0.0, Basophils % 0.1, Nucleated RBC % 0.0, Neutrophils # 10.8 H, Lymphocytes # 0.77 L, Monocytes # 0.3, Eosinophils # 0.0, Absolute Basophils 0.0 11/25/20 06:22: Sodium 139, Plasma Sodium 140, Potassium 5.0 H, Chloride 103, Carbon Dioxide 29.3, Anion Gap 11.7, BUN 25 H, Creatinine 0.94, Est GFR (Non-Af Amer) 89, BUN/Creatinine Ratio 26.6 H, Random Glucose 149 H D, Calcium 9.0, Calcium Adj for Albumin 9.0, Total Bilirubin 0.6, AST 16, ALT 45, Alkaline Phosphatase 49 L, Total Protein 7.0, Albumin 3.6 11/26/20 06:26: WBC 13.2 H, RBC 4.90, Hgb 16.4, Hct 49.0, MCV 100.0, MCH 33.5 H, MCHC 33.5, RDW 12.0, Plt Count 281, MPV 9.3, Immature Gran % (Auto) 0.50 H, Immature Gran # (Auto) 0.07 H, Neutrophils % 91.9 H, Lymphocytes % 3.7 L, Monocytes % 3.7, Eosinophils % 0.0, Basophils % 0.2, Nucleated RBC % 0.0, Neutrophils # 12.2 H, Lymphocytes # 0.49 L, Monocytes # 0.5, Eosinophils # 0.0, Absolute Basophils 0.0 11/26/20 06:26: Sodium 138, Plasma Sodium 139, Potassium 4.6, Chloride 102, Carbon Dioxide 27.3, Anion Gap 13.3, BUN 30 H, Creatinine 1.01, Est GFR (Non-Af Amer) 82, BUN/Creatinine Ratio 29.7 H, Random Glucose 147 H, Calcium 9.1, Calcium Adj for Albumin 9.2, Total Bilirubin 0.5, AST 11, ALT 42, Alkaline Phosphatase 49 L, Total Protein 6.7, Albumin 3.5 Discharge Location: Home Disposition: Home self-care Condition: Fair Discharge Activity: Activity as tolerated Discharge Diet: General/regular food Referrals: [facility] [Non Staff Physicians] - (Follow up with PCP in 1-2 weeks) Problem Oriented Discharge Instructions to Patient/Family: Asthma, Adult, [id number] Prescriptions (Any new or edited meds): predniSONE [Prednisone] 40 mg PO DAILY #42 Complete Home Medications List: Complete Home Medication List: Albuterol Sulfate [Ventolin Hfa] 2 puff IH Q2H 11/22/20 Albuterol Sulfate/Ipratropium [Duoneb 2.5-0.5MG/3ML Soln] 3 ml IH Q6H 11/22/20 Aspirin 81 mg PO DAILY 11/22/20 Losartan Potassium 100 mg PO DAILY 11/22/20 Omeprazole 20 mg PO DAILY 11/22/20 Tiotropium Br/Olodaterol HCl [Stiolto Respimat Inhal [place]] 2 puff IH DAILY 11/22/20 hydrOXYzine HCL [Atarax] 50 mg PO HS 11/22/20 predniSONE [Prednisone] 2 tab PO DAILY #21 tab 11/27/20 Forms: Patient Portal Registration
[2020-11-27 13:46] VITALS: BP 120/80
== END 2020-11-27 13:54 | disposition home or self-care (01) | DRG 202 ==
LOC: EDBD → ER 21:03 → MS 23:08 → MERGE 23:08 → MS 23:32
PROVIDERS: ADMIT Family Medicine; ATTEND Family Medicine
DX: Z72.0 Tobacco use; I10 Essential (primary) hypertension; J44.9 Chronic obstructive pulmonary disease, unspecified; J45.901 Unspecified asthma with (acute) exacerbation; J96.01 Acute respiratory failure with hypoxia